=== PATIENT | female | born 1995 | race Caucasian/White ===

== ENCOUNTER 2016-09-11 22:33 | Emergency (ER) | payer OTHER ==
[~2016-09-11] VITALS: Ht 162.6 cm; Wt 53.2 kg
[~2016-09-11 22:33] MED LIST: MEDR150I INJ
[2016-09-11 22:34] VITALS: TEMP 36.5; O2SAT 97; Ht 162.6 cm; Wt 53.2 kg
[2016-09-11] MEDS ORDERED: KETOROLAC TROMETHAMINE 30 MG/ML VIAL IM STA (23:03)
[2016-09-11] MEDS ORDERED: MEDR150I INJ (23:10)
--- NOTE | 2016-09-11 23:46 | DIAGNOSTIC IMAGING REPORT ---
ULTRASOUND OF THE THYROID GLAND CLINICAL HISTORY: Right-sided neck mass. COMPARISON STUDY: No priors. TECHNIQUE: Real-time, grayscale, and color flow sonography of the thyroid gland is performed utilizing a high-frequency linear transducer. Images are reviewed in the transverse and longitudinal planes. FINDINGS: Right lobe: The right lobe of the thyroid gland is normal in size and homogeneous in echotexture, measuring 5.4 x 2.4 x 2.9 cm. There is a hypoechoic solid mass in the right mid to lower pole measuring 3.7 x 1.9 x 2.5 cm. This demonstrates internal flow on color imaging. A 3 mm colloid cyst is noted in the upper pole. Left lobe: The left lobe of the thyroid gland is normal in size and homogeneous in echotexture, measuring 4.1 x 0.9 x 1.5 cm. A 3 mm colloid cyst is noted in the left upper pole. Isthmus: The thyroid isthmus is normal in appearance and measures 0.1 cm in AP diameter. IMPRESSION: 1. There is a 3.7 cm dominant solid nodule in the right lobe of the thyroid gland. This corresponds to the lesion of palpable concern, and follow-up as an outpatient with fine-needle aspiration is recommended based on size criteria. 2. The thyroid gland is otherwise normal in appearance. Electronically signed by: Atif Borges M.D. 09/11/2016 11:44 PM Dictated Date/Time: 09/11/2016 11:42 PM
[2016-09-12 00:29] VITALS: BP 112/74; PULSE 94
--- NOTE | 2016-09-12 05:11 | EMERGENCY ROOM VISIT NOTE ---
History First contact with patient: 22:54 Chief Complaint: NECK PAIN Stated Complaint: PAIN IN BACK OF NECK,LUMP IN FRONT OF NECK History of Present Illness The patient is a 21 year old female who presents to the Emergency Room with complaints of pain in the right posterior aspect of her neck. The patient does not have a history of injury or trauma. 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 She does have pain with touching in the area of the neck as well as with certain motion of the head or shoulder. Additionally the patient has noticed a lump along the right side anterior neck. This is minimally tender when she swallows. She has not had fever or chills. No sore throat/ pharyngitis symptoms. The patient considers herself usually healthy and rates her overall discomfort a 7/10. She has not taken anything [id number] for her discomfort. Review of Systems More than 10 systems were reviewed and otherwise negative with the exception of history of present illness. Past Medical/Surgical History Medical Problems: (1) Headache (2) SYNCOPE AND COLLAPSE Family History Cancer Diabetes mellitus Gallbladder disease Heart disease Hypertension Seizures Social History Smoking Status: Never Smoker Alcohol Use: none Drug Use: none Marital Status: single Occupation Status: student Current/Historical Medications Scheduled Medroxyprogesterone Acetate (C (Depo-Provera Contraceptiv), 1 DOSE INJ every 3 months Allergies Coded Allergies: No Known Allergies (Unverified , 09/11/16) Physical Exam Vital Signs Date Time Temp Pulse Resp B/P Pulse Ox O2 Delivery O2 Flow Rate FiO2 09/12/16 00:29 94 18 112/74 Room Air 09/11/16 22:34 36.5 93 16 135/84 97 Room Air Pain Rating (0-10): 0 Physical Exam VITALS: Vitals are noted on the nurse's note and reviewed by myself. Vital signs stable. GENERAL: Well-developed, well-nourished, white female, who is in no acute distress and resting comfortably. Patient is cooperative with the examination. HEAD: Normocephalic atraumatic. EARS: External ear normal. External auditory canals clear, tympanic membranes pearly khoury without erythema or effusion bilaterally. EYES: Pupils equal round and reactive to light and accommodation. Conjunctivae without injection, sclerae without icterus. Extraocular movements intact. NOSE: Patent, turbinates without inflammation or discharge. MOUTH: Mucous membranes moist. Tonsils are not enlarged. Pharynx without erythema, blood, or exudate. Uvula midline. Airway patent. NECK: Supple without nuchal rigidity. There is a right anterior and inferior palpable mass that appears to be in the area of the thyroid. This is unilateral and measures approximately 4 cm in diameter HEART: Regular rate and rhythm without murmurs gallops or rubs. LUNGS: Clear to auscultation bilaterally without wheezes, rales or rhonchi. No retractions or accessory muscle use. MUSCULOSKELETAL: No muscle atrophy, erythema, or edema noted . Tenderness is appreciated over the right side neck into the superior aspect of the right shoulder. The patient does have worsening tenderness with certain range of motion of the shoulder. Positive empty can. NEURO: Patient was alert and oriented to person place and time. CN II through XII grossly intact. Medical Decision & Procedures ER Provider Diagnostic Interpretation: ULTRASOUND OF THE THYROID GLAND CLINICAL HISTORY: Right-sided neck mass. COMPARISON STUDY: No priors. TECHNIQUE: Real-time, grayscale, and color flow sonography of the thyroid gland is performed utilizing a high-frequency linear transducer. Images are reviewed in the transverse and longitudinal planes. FINDINGS: Right lobe: The right lobe of the thyroid gland is normal in size and homogeneous in echotexture, measuring 5.4 x 2.4 x 2.9 cm. There is a hypoechoic solid mass in the right mid to lower pole measuring 3.7 x 1.9 x 2.5 cm. This demonstrates internal flow on color imaging. A 3 mm colloid cyst is noted in the upper pole. Left lobe: The left lobe of the thyroid gland is normal in size and homogeneous in echotexture, measuring 4.1 x 0.9 x 1.5 cm. A 3 mm colloid cyst is noted in the left upper pole. Isthmus: The thyroid isthmus is normal in appearance and measures 0.1 cm in AP diameter. IMPRESSION: 1. There is a 3.7 cm dominant solid nodule in the right lobe of the thyroid gland. This corresponds to the lesion of palpable concern, and follow-up as an outpatient with fine-needle aspiration is recommended based on size criteria. 2. The thyroid gland is otherwise normal in appearance. Medications Administered Medications (Trade) Dose Ordered Sig/Kaye Route Start Time Stop Time Status Last Admin Dose Admin Ketorolac Tromethamine (Toradol Inj) 30 mg NOW STAT IM 09/11/16 23:03 09/11/16 23:07 DC 09/11/16 23:11 30 MG ED Course Physical exam and history were performed. Nursing notes and EMR were reviewed. Patient appears to have right-sided neck and shoulder pain as well as a right- sided neck mass. The patient was offered pain medication, but she has significant difficulty swallowing pills. Because of this she was given 30 mg IM Toradol. X-ray was obtained and does not appear to acute bony abnormality per my interpretation. Official radiology read is pending. Ultrasound was performed and was read by Alex as above. She appears to have a 3.7 cm thyroid nodule. Clinically this does correlate with the patient's area of concern. Overall the patient appears stable for discharge home. I suspect that her neck and shoulder pain is muscle skeletal in nature, possibly from working, and should improve with conservative measures. Her thyroid nodule will need a fine- needle aspiration, and I did discuss this at length with both her and her parents. I did engage the ER housing case manager to help arrange a patient appointment next week. It is currently Wednesday night, and we will call Wednesday morning to help facilitate ENT care. The family was pleased with this and voiced understanding. The patient was otherwise invited back to the ER with any new, worsening, or concerning symptoms. The chart was completed utilizing [employer] Speech Voice Recognition Software. Grammatical errors, random word insertions, pronoun errors, and incomplete sentences are an occasional consequence of this system due to software limitations, ambient noise, and hardware issues. Any formal questions or concerns about the content, text, or information contained within the body of this dictation should be directly addressed to the provider for clarification. . Medical Decision Differential diagnosis includes, but is not limited to: Sprain, strain, fracture , dislocation, subluxation, contusion, nodule, thyroid disease, thyroiditis, and others Impression Primary Impression: Thyroid nodule Additional Impression: Neck pain on right side Departure Information Dispostion Home / Self-Care Condition GOOD Referrals Forrest Weiner D.O. Forms HOME CARE DOCUMENTATION FORM, IMPORTANT VISIT INFORMATION Patient Instructions My [facility] Additional Instructions You were seen and evaluated today on an emergency basis only. This is not a substitute for, or an effort to provide, complete comprehensive medical care. It is not possible to recognize and treat all injuries or illnesses in a single emergency department visit. For this reason it is recommended that you followup with ENT next week for ongoing care and evaluation. We have provided the information for Dr. Weiner's office, [facility]. You may contact the office on Wednesday to help make an appointment. Additionally our rn field case manager from the ER will be contacting them to help facilitate you being seen in a timely manner. For baseline pain relief you may alternate ibuprofen and acetaminophen every 4 hours for pain control. Take 600 mg ibuprofen (Advil) and then 4 hours later take 1000 mg acetaminophen (Tylenol). Do not take more than 3000 mg acetaminophen in a single day. Drink plenty of fluids and remain well hydrated. You are welcome to return to the emergency department anytime with new, worsening, or concerning symptoms. Problem Qualifiers
--- NOTE | 2016-09-12 07:48 | DIAGNOSTIC IMAGING REPORT ---
CERVICAL SPINE 5 VIEWS CLINICAL HISTORY: Right neck pain. FINDINGS: AP, lateral, bilateral oblique, and odontoid views of the cervical spine are obtained. No prior studies are available for comparison at the time of dictation. The skeletal structures are well mineralized. There is no radiographic evidence of fracture or subluxation. The odontoid process and lateral masses appear intact on the open mouth view. The spinolaminar line is preserved. Vertebral body height and alignment are maintained. The spinous processes appear intact. The intervertebral disc spaces are normal. There is no evidence of neuroforaminal stenosis on the oblique views. The prevertebral soft tissues are within normal limits. Visualized apical lung parenchyma appears clear. IMPRESSION: Unremarkable radiographic assessment of the cervical spine. Electronically signed by: Atif Borges M.D. 09/12/2016 7:47 AM Dictated Date/Time: 09/12/2016 7:46 AM
[2016-11-09] MEDS ORDERED: OXYC-57 PO (07:21)
[2016-11-10] MEDS ORDERED: TUMS PO (06:37)
[2016-12-14] MEDS ORDERED: OXYC-57 PO (09:43)
[2016-12-14] MEDS ORDERED: CEPH500C2 PO ×2 (09:43→09:48)
[2016-12-14] MEDS ORDERED: TUMS PO (09:48)
[2016-12-14] MEDS ORDERED: LEVO100T PO (16:30)
== END 2016-09-12 00:47 | disposition home or self-care (01) ==
LOC: C.EDB 22:34
DX: E04.1 Nontoxic single thyroid nodule (principal); M54.2 Cervicalgia; Z80.9 Family history of malignant neoplasm, unspecified; Z83.3 Family history of diabetes mellitus; Z83.79 Family history of other diseases of the digestive system; Z82.49 Family history of ischemic heart disease and other diseases of the circulatory system; Z82.0 Family history of epilepsy and other diseases of the nervous system

== ENCOUNTER 2016-11-09 05:31 | Observation (INO) | payer OTHER ==
[~2016-11-09] VITALS: Ht 162.6 cm; Wt 53.6 kg
[2016-11-09] VITALS (9 sets, daily range): BP systolic 91–129; BP diastolic 53–82; PULSE 81–98; TEMP 36.4–36.9; O2SAT 92–100; Ht 162.6 cm; Wt 53.6 kg
[2016-11-09] MEDS ORDERED: LACTATED RINGER'S 1000ML 500 ML IV ONE (06:00)
[2016-11-09] MEDS ORDERED: LACTATED RINGER'S 1000ML 1,000 ML IV SCH (06:00)
[2016-11-09] MEDS ORDERED: PROPOFOL IV EMULSION 10 MG/ML 20 ML VIAL IV ONE ×2 (06:20→08:02)
[2016-11-09] MEDS ORDERED: ONDANSETRON INJ 2 MG/ML 2 ML VIAL ONE (06:20)
[2016-11-09] MEDS ORDERED: DEXAMETHASONE SOD INJ 4 MG/ML VIAL ONE (06:20)
[2016-11-09] MEDS ORDERED: LIDOCAINE HCL 2% 2 ML VIAL (20MG/ML) ONE (06:20)
[2016-11-09] MEDS ORDERED: SUCCINYLCHOLINE CHLORIDE 20 MG/ML 10 ML VIAL IV ONE (06:20)
[2016-11-09] MEDS ORDERED: MIDAZOLAM HCL 1 MG/ML 2ML VIAL ONE (06:21)
[2016-11-09] MEDS ORDERED: FENTANYL CITRATE INJ 50 MCG/1 ML 2 ML VIAL ONE (06:21)
[2016-11-09 06:22] LABS: HEMATOCRIT 37.8 % (37-47); MEAN CELL VOLUME 87.3 fL (80-100); MEAN PLATELET VOLUME 8.8 fL (7.4-10.4); PLATELET COUNT 275 K/uL (130-400); RED BLOOD COUNT 4.33 M/uL (4.2-5.4); WHITE BLOOD COUNT 5.63 K/uL (4.8-10.8)
[2016-11-09 06:24] LABS: MEAN CORPUSCULAR HGB CONC 34.4 g/dl (32-36)
--- NOTE | 2016-11-09 07:08 | History and Physical ---
History & Physical Date November 09, 2016. History of Present Illness The patient is a 21 year old female with complaints of right thyroid nodule. 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 Afirma testing suspicious. Patient and mother desire right hemithyroidectomy Past Medical/Surgical History Medical Problems: (1) Headache (2) SYNCOPE AND COLLAPSE Additional History Hepatic Disease: No Endocrine Disorder: No Kidney Disease: No Hypertension: No Heart Disease: No Bleeding Tendencies: No Infectious Diseases: No Allergies Coded Allergies: No Known Allergies (Verified , 11/09/16) Home Medications Scheduled Medroxyprogesterone Acetate (C (Depo-Provera Contraceptiv), 1 DOSE INJ every 3 months Physical Examination Skin: warm/dry, no rash Eyes: normal inspection, EOMI, sclerae normal ENT: normal ENT inspection, pharynx normal Head: normocephalic, atraumatic Neck: supple, no adenopathy, trachea midline, + pertinent finding (palpable right thyroid nodule) Respiratory/Chest: lungs clear, normal breath sounds, no respiratory distress Cardiovascular: regular rate, rhythm, no edema, no murmur Abdomen / GI: normal bowel sounds, non tender Back: normal inspection Extremities: normal inspection, normal range of motion Neurologic/Psych: no motor/sensory deficits, alert, normal reflexes, oriented x 3 Diagnosis right thyroid nodule Plan of Treatment proceed with right hemithyroidectomy scds
[2016-11-09] MEDS ORDERED: SODIUM CHLORIDE 0.9% 1000ML 1,000 ML IV SCH (07:16)
[2016-11-09] MEDS ORDERED: LIDOCAINE/EPINEPHRINE 1% 20 ML VIAL ONE (07:20)
[2016-11-09] MEDS ORDERED: OXYC-57 PO (07:21)
[2016-11-09] MEDS ORDERED: EpINEphrine INJ 1MG/ML AMP 1 MG/ML AMP ONE (07:21)
--- NOTE | 2016-11-09 07:24 | Discharge Instructions ---
Discharge Instructions Date of Service November 09, 2016. Admission Reason for Admission: Thyroid Nodule Discharge Discharge Diagnosis / Problem: thyroid nodule Discharge Goals Goal(s): Diagnostic testing Activity Recommendations Activity Limitations: as noted below Lifting Limitations: no more than 5 pounds Exercise/Sports Limitations: until after follow-up appointment May Resume Sexual Activity: after follow-up appointment Shower/Bathe: keep incision dry Driving or Machine Use: 1 week No strenuous activity for 2 weeks Keep incision dry . Instructions / Follow-Up Instructions / Follow-Up Keep incision dry (if you want to shower, place a washcloth over the incision and wrap the neck in saran wrap) No strenuous activity for 2 weeks Call for any numbness or tingling around the lips or fingertips unrelieved by 10 minutes of rest as this may be a sign of low calcium Call for any spreading swelling or redness around the incision Current Hospital Diet Patient's current hospital diet: Discharge Diet Recommended Diet: Regular Diet Fluid Restriction: None Pending Studies Studies pending at discharge: no Medical Emergencies . Who to Call and When: Medical Emergencies: If at any time you feel your situation is an emergency, please call 911 immediately. . Non-Emergent Contact Non-Emergency issues call your: Specialist Contact Number: [phone] . . "Provider Documentation" section prepared by Forrest Weiner. . VTE Core Measure Inpt VTE Proph given/why not?: Treatment not indicated [place] Drug Monitoring Program Search Results: patient reviewed within database, no issues identified
[2016-11-09] MEDS ORDERED: PROMETHAZINE HCL INJ 6.25 MG in SODIUM CHLORIDE 0.9% 50ML 50 ML IV PRN (07:30)
[2016-11-09] MEDS ORDERED: ATROPINE SULFATE 0.1 MG/ML 5ML SYR IV PRN (07:30)
[2016-11-09] MEDS ORDERED: EpHEDrine SULFATE INJ 50 MG/ML AMP IV PRN (07:30)
[2016-11-09] MEDS ORDERED: ONDANSETRON INJ 2 MG/ML 2 ML VIAL IV PRN (07:30)
[2016-11-09] MEDS ORDERED: OXYCODONE/ACETAMINOPHEN 5-325 TAB PO PRN (07:30)
[2016-11-09] MEDS ORDERED: ARISTA ABSORBABLE HEMOSTAT 3GM TOP ONE (09:16)
--- NOTE | 2016-11-09 09:32 | [facility] Post Operative Brief Note ---
Immediate Operative Summary Operative Date November 09, 2016. Pre-Operative Diagnosis Thyroid Nodule. FNA consistent with FLUS. Afirma testing suspicious Post-Operative Diagnosis Right Thyroid Nodule Procedure(s) Performed Right Hemithyroidectomy Surgeon Dr. Forrest Weiner [employer] Install[employer] Surgeon(s) Judi Cooney PA-C Estimated Blood Loss 10ml Findings large right thyroid nodule Fluids (cc crystalloids) 1100mL Specimens A. Right Thyroid Lobe and Isthmus-Stitch in Superior Pole Drains none Anesthesia GETA Complication(s) None Disposition Recovery Room / PACU
[2016-11-09] MEDS: FENTANYL CITRATE INJ 50 MCG/1 ML 2 ML VIAL IV PRN ×2 (09:57→10:02)
--- NOTE | 2016-11-09 10:55 | Anesthesiology Progress Note ---
Anesthesia Post Op Note Date & Time November 09, 2016 at 10:55 Vital Signs Pain Intensity: 2 Vital Signs Past 12 Hours Date Time Temp Pulse Resp B/P Pulse Ox O2 Delivery O2 Flow Rate FiO2 11/09/16 10:35 36.8 92 16 105/77 98 Room Air 11/09/16 10:25 36.8 89 16 100/67 98 Room Air 11/09/16 10:15 86 16 114/71 98 Room Air 11/09/16 10:05 104 16 114/71 94 Room Air 11/09/16 09:55 97 16 114/73 100 Mask 10 11/09/16 09:45 99 16 115/72 100 Mask 10 11/09/16 09:36 36.6 114 16 109/72 100 Mask 10 11/09/16 05:55 36.9 96 18 129/82 99 Room Air Notes Mental Status: alert / awake / arousable, participated in evaluation Pt Amnestic to Procedure: Yes Nausea / Vomiting: adequately controlled Pain: adequately controlled Airway Patency, RR, SpO2: stable & adequate BP & HR: stable & adequate Hydration State: stable & adequate Anesthetic Complications: no major complications apparent
[2016-11-09] MEDS: MoRPHine SULFATE 2 MG/ML CARP IV PRN ×2 (11:40→16:56)
--- NOTE | 2016-11-09 12:09 | OPERATIVE REPORT ---
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 PROCEDURE: Right hemithyroidectomy. COMPLICATIONS: None. DRAINS: None. ESTIMATED BLOOD LOSS: 10 mL. INTRAVENOUS FLUIDS: 1100 mL. URINE OUTPUT: 0 mL. SURGEON: Forrest Weiner DO ASSISTANTS: Lilian Cooney PA-C FINDINGS: See body of operative report. INDICATIONS FOR PROCEDURE: I discussed the options with her and her mother including observation versus repeat ultrasound versus consideration of a surgical biopsy with the right hemithyroidectomy. She and her mother expressed interest in pursuing right hemithyroidectomy. I discussed the risks including bleeding, infection, recurrent laryngeal nerve injury, hypoparathyroidism, and excessive scarring. She expressed understanding and signed informed consent. DESCRIPTION OF OPERATION: The patient was brought to the operating room, identified, procedure verified. She underwent general endotracheal anesthesia using nerve integrity monitoring tube. Using the GlideScope, the proper position of the tube was confirmed after a shoulder roll was placed. Once this was done, low Halima incision was delineated on the neck with a marking pen and injected with 1% lidocaine 1:100,000 of epinephrine. After allowing time for local to take effect, an incision was carried down with the 15 blade through skin and subcutaneous tissue down to the level of platysma. Superior and inferior subplatysmal flaps were then raised. Attention was directed to the midline raphae, which was identified and divided with the Bovie and attention was directed to the right side of the neck. The strap muscles were skeletonized and retracted laterally. They were not divided. Once this was done, the right thyroid lobe came into plain view. The large right-sided nodule of concern was easily visualized and palpable. Attention was directed to the superior pole, which was taken down in the usual fashion with blunt dissection with hemostats and right angle clamp as well as a harmonic ewelina. Once the superior pole was taken down, attention was directed to the visceral vertebral angle when the gland was rotated medially. Dissection proceeded from an inferior to superior direction along the visceral vertebral angle and the recurrent laryngeal nerve was identified. It was stimulated with the prass probe and a brisk response was obtained. The nerve was dissected out with a hemostat. During this portion of the case, the right superior parathyroid was identified and preserved. The right inferior parathyroid was not visualized, but felt to be preserved due to a capsular dissection. The nerve was dissected free from its surrounding fascial attachments superiorly into the cricothyroid joint. Once this was done, any remaining fascial attachments along the Woodruff's ligament were taken down with the harmonic ewelina as well as blunt dissection. Once this was completed, the remaining portion of the gland was removed with the harmonic ewelina as well as bipolar cautery. The gland was removed and a stitch was placed at the superior pole. At this point, attention was directed to the neck, where the Prass probe was used to confirm the integrity of the recurrent laryngeal nerve on the right hand side. A brisk response was obtained. Irrigation was performed, Valsalva during irrigation was performed as well and no air bubbles were identified during the leak test. Hemostasis was assured and several Valsalvas again were performed, but no bleeding was identified. Baljinder hemostatic powder was placed into the visceral vertebral angle and the wound was closed in the usual fashion with 3-0 Vicryl for the deep layer, 3-0 Vicryl for the platysmal layer, and 4-0 Vicryl for the subdermal layer. A running barbed suture was placed. It was a 4-0 to close the subcuticular layers, skin was closed with skin glue, and a Steri-Strip was applied. The patient was returned to anesthesia. She was awakened, extubated and taken to PACU in stable condition. I attest to the content of the Intraoperative Record and any orders documented therein. Any exceptions are noted below. NASRA
--- NOTE | 2016-11-09 12:26 | Ears,Nose,Throat Progress Note ---
Progress Note Date of Service November 09, 2016. Subjective Pt evaluation today including: conversation w/ patient, conversation w/ family , physical exam Patient is s/p right hemithyroidectomy, POD 0. Doing well. Pain controlled. Tolerating PO. No paraesthesias. Objective Vital Signs Date Time Temp Pulse Resp B/P Pulse Ox O2 Delivery O2 Flow Rate FiO2 11/09/16 12:02 91 17 108/69 92 Room Air 11/09/16 11:27 36.4 95 17 113/74 98 Room Air 11/09/16 10:55 Room Air 11/09/16 10:55 100 Room Air 11/09/16 10:35 36.8 92 16 105/77 98 Room Air 11/09/16 10:25 36.8 89 16 100/67 98 Room Air 11/09/16 10:15 86 16 114/71 98 Room Air 11/09/16 10:05 104 16 114/71 94 Room Air 11/09/16 09:55 97 16 114/73 100 Mask 10 11/09/16 09:45 99 16 115/72 100 Mask 10 11/09/16 09:36 36.6 114 16 109/72 100 Mask 10 11/09/16 05:55 36.9 96 18 129/82 99 Room Air Physical Exam General Appearance: WD/WN, no apparent distress ENT: normal ENT inspection Neck: + pertinent finding (steri strip in place, flaps are flat. No collections) Respiratory/Chest: no respiratory distress, no accessory muscle use Laboratory Results Last 24 Hours Test 11/09/16 05:50 11/09/16 06:11 Bedside Urine Test NEG White Blood Count 5.63 K/uL Red Blood Count 4.33 M/uL Hemoglobin 13.0 g/dL Hematocrit 37.8 % Mean Corpuscular Volume 87.3 fL Mean Corpuscular Hemoglobin 30.0 pg Mean Corpuscular Hemoglobin Concent 34.4 g/dl RDW Standard Deviation 39.8 fL RDW Coefficient of Variation 12.3 % Platelet Count 275 K/uL Mean Platelet Volume 8.8 fL Assessment and Plan 21 yo female s/p right hemithyroidectomy, POD 0 for large right sided nodule, FLUS on cytology and suspicious on Afirma testing. - doing well - advance diet as tolerated - ambulate q shift - discharge planning for tomorrow am
[2016-11-09] MEDS ORDERED: IV FLUIDS COMPLETED PRN (12:45)
[2016-11-09] MEDS: CALCIUM CARBONATE 500 MG CHEWABLE PO SCH ×2 (13:50→20:57)
[2016-11-09] MEDS: ONDANSETRON INJ 2 MG/ML 2 ML VIAL IV PRN (17:50)
[2016-11-09] MEDS: OXYCODONE/ACETAMINOPHEN 5-325 TAB PO PRN (20:58)
[2016-11-09] MEDS ORDERED: NURSING VERBAL MED ORDER ONE (23:30)
[2016-11-10] MEDS: MoRPHine SULFATE 2 MG/ML CARP IV PRN (02:25)
[2016-11-10 03:26] VITALS: BP 104/66; PULSE 90; TEMP 36.8; O2SAT 100
[2016-11-10] MEDS: ONDANSETRON INJ 2 MG/ML 2 ML VIAL IV PRN (06:13)
[2016-11-10] MEDS: OXYCODONE/ACETAMINOPHEN 5-325 TAB PO PRN ×2 (06:22→11:26)
[2016-11-10] MEDS ORDERED: TUMS PO (06:37)
[2016-11-10 07:10] VITALS: BP 101/63; PULSE 87; TEMP 36.3; O2SAT 97
--- NOTE | 2016-11-10 07:12 | Ears,Nose,Throat Progress Note ---
Progress Note Date of Service November 10, 2016. Subjective Pt evaluation today including: conversation w/ patient, physical exam Did well overnight. Is POD 1 s/p right hemithyroidectomy. No paraesthesias. Objective Vital Signs Date Time Temp Pulse Resp B/P Pulse Ox O2 Delivery O2 Flow Rate FiO2 11/10/16 03:26 36.8 90 16 104/66 100 Room Air 11/10/16 01:50 Room Air 11/09/16 23:40 36.8 81 16 91/53 99 Room Air 11/09/16 18:58 36.7 89 18 107/72 100 Room Air 11/09/16 15:30 36.6 98 18 114/75 97 Room Air 11/09/16 15:20 Room Air 11/09/16 13:56 36.8 98 16 103/70 97 Room Air 11/09/16 12:54 36.6 95 17 104/69 98 Room Air 11/09/16 12:02 91 17 108/69 92 Room Air 11/09/16 11:27 36.4 95 17 113/74 98 Room Air 11/09/16 10:55 Room Air 11/09/16 10:55 100 Room Air 11/09/16 10:55 36.4 94 16 103/67 100 Room Air 11/09/16 10:35 36.8 92 16 105/77 98 Room Air 11/09/16 10:25 36.8 89 16 100/67 98 Room Air 11/09/16 10:15 86 16 114/71 98 Room Air 11/09/16 10:05 104 16 114/71 94 Room Air 11/09/16 09:55 97 16 114/73 100 Mask 10 11/09/16 09:45 99 16 115/72 100 Mask 10 11/09/16 09:36 36.6 114 16 109/72 100 Mask 10 Physical Exam General Appearance: WD/WN, no apparent distress Eyes: EOMI ENT: normal ENT inspection Neck: + pertinent finding (flaps are flat, no collections. steri strip in place) Respiratory/Chest: no respiratory distress, no accessory muscle use Assessment and Plan 21 yo female s/p right hemithyroidectomy, POD 1 for large right sided nodule, FLUS on cytology and suspicious on Afirma testing. - did well overnight - discharge home this am
--- NOTE | 2016-11-10 07:15 | Discharge Summary ---
Discharge Summary Date of Service November 10, 2016. Discharge Summary Admission Date: November 09, 2016 at 05:50 Discharge Date: November 10, 2016 Discharge Disposition: Home Secondary Diagnoses/Problems: Medical Problems: (1) Bartholin cyst Status: Acute (2) Neck pain on right side Status: Acute (3) Thyroid nodule Status: Acute Procedures: right hemithyroidectomy Discharge Instructions Last Recorded Wt (Kilograms): 53.640 Activity Recommendations: limitations as noted below (no strenuous activity for 2 weeks) Diet At Discharge: Regular Allergies: Coded Allergies: No Known Allergies (Verified , 11/09/16) Home Health Services: none Special Care: Call your doctor if: * Temperature above 101 degrees * Pain not relieved by pain medicine ordered * There is increased drainage or redness from any incision * You have any unanswered questions or concerns. Avoid all tobacco products. If you need help to stop smoking, call [facility] FREE QUITLINE at . This is a free call. Admission Information Admission HPI: Patient with right thyroid nodule, FNA consistent with FLUS, suspicious on Afirma testing. Admission Physical Exam: Gen: AAOx3. Neck: Palpable right thyroid nodule Lungs: CTAB Heart: RRR Hospital Course Patient admitted for observation after undergoing right hemithyroidectomy. Patient did well with no issues. Tolerating diet. She was discharged on POD 1. Total time spent on discharge = This includes examination of the patient, discharge planning, medication reconciliation, and communication with other providers.
--- NOTE | 2016-11-10 08:11 | Anesthesiology Progress Note ---
Anesthesia Post Op Note Date & Time November 10, 2016 at 08:11 Vital Signs Vital Signs Past 12 Hours Date Time Temp Pulse Resp B/P Pulse Ox O2 Delivery O2 Flow Rate FiO2 11/10/16 07:10 36.3 87 17 101/63 97 Room Air 11/10/16 03:26 36.8 90 16 104/66 100 Room Air 11/10/16 01:50 Room Air 11/09/16 23:40 36.8 81 16 91/53 99 Room Air Notes Mental Status: alert / awake / arousable, participated in evaluation Pt Amnestic to Procedure: Yes Nausea / Vomiting: adequately controlled Pain: adequately controlled Airway Patency, RR, SpO2: stable & adequate BP & HR: stable & adequate Hydration State: stable & adequate Anesthetic Complications: no major complications apparent
[2016-11-10] MEDS: CALCIUM CARBONATE 500 MG CHEWABLE PO SCH (09:03)
[2016-11-10 09:21] VITALS: BP 101/63; PULSE 87; TEMP 36.3; O2SAT 97
== END 2016-11-10 12:45 | disposition home or self-care (01) ==
LOC: ENRESERVTM → ENRESERVDT → C.ACU 05:31 → C.MSN 05:50
PROVIDERS: ADMIT Otolaryngology; ATTEND Otolaryngology
DX: C73 Malignant neoplasm of thyroid gland (principal)

== ENCOUNTER 2016-12-14 05:02 | Inpatient (IN) | payer OTHER ==
[2016-12-10 08:53] VITALS: Ht 162.6 cm; Wt 50.9 kg
[2016-12-14] VITALS (9 sets, daily range): BP systolic 101–111; BP diastolic 65–74; PULSE 77–107; TEMP 36.6–37; O2SAT 97–100
[~2016-12-14] VITALS: Ht 162.6 cm; Wt 50.9 kg
[2016-12-14] MEDS ORDERED: LACTATED RINGER'S 1000ML 1,000 ML IV SCH (06:00)
[2016-12-14] MEDS ORDERED: CEFAZOLIN 1000MG/55 ML D5W IV SCH (06:00)
[2016-12-14] MEDS ORDERED: EpHEDrine SULFATE INJ 50 MG/ML AMP ONE (06:45)
[2016-12-14] MEDS ORDERED: NEOSTIGMINE METHYLSULFATE 5 MG/5 ML SYR ONE (06:45)
[2016-12-14] MEDS ORDERED: SUCCINYLCHOLINE CHLORIDE 20 MG/ML 10 ML VIAL IV ONE (06:45)
[2016-12-14] MEDS ORDERED: GLYCOPYRROLATE INJ 0.2 MG/ML VIAL ONE (06:45)
[2016-12-14] MEDS ORDERED: ONDANSETRON INJ 2 MG/ML 2 ML VIAL ONE ×2 (06:45→08:37)
[2016-12-14] MEDS ORDERED: DEXAMETHASONE SOD INJ 4 MG/ML VIAL ONE (06:45)
[2016-12-14] MEDS ORDERED: LIDOCAINE HCL 2% 2 ML VIAL (20MG/ML) ONE (06:45)
[2016-12-14] MEDS ORDERED: MIDAZOLAM HCL 1 MG/ML 2ML VIAL ONE (06:45)
[2016-12-14] MEDS ORDERED: PROPOFOL IV EMULSION 10 MG/ML 20 ML VIAL IV ONE ×2 (06:45→08:44)
[2016-12-14] MEDS ORDERED: PHENYLEPHRINE HCL INJ 10 MG/ML VIAL ONE (06:45)
[2016-12-14] MEDS ORDERED: FENTANYL CITRATE INJ 50 MCG/1 ML 2 ML VIAL ONE ×3 (06:45→08:07)
[2016-12-14] MEDS ORDERED: LIDOCAINE/EPINEPHRINE 1% 20 ML VIAL ONE (06:55)
[2016-12-14] MEDS ORDERED: EpINEphrine INJ 1MG/ML AMP 1 MG/ML AMP ONE (06:56)
--- NOTE | 2016-12-14 07:10 | History and Physical ---
History & Physical Date Dec 14, 2016. Chief Complaint Follicular thyroid cancer History of Present Illness The patient is a 21 year old female who is s/p right hemithyroidectomy. Path consistent with follicular thyroid carcinoma. She presents today for completion thyroidectomy. Past Medical/Surgical History Medical Problems: (1) Headache (2) SYNCOPE AND COLLAPSE Additional History Hepatic Disease: No Endocrine Disorder: No Kidney Disease: No Hypertension: No Heart Disease: No Bleeding Tendencies: No Infectious Diseases: No Allergies Coded Allergies: No Known Allergies (Verified , 12/14/16) Home Medications Scheduled Medroxyprogesterone Acetate (C (Depo-Provera Contraceptiv), 1 DOSE INJ every 3 months Physical Examination Skin: warm/dry, no rash Eyes: normal inspection, EOMI, sclerae normal ENT: normal ENT inspection, pharynx normal Head: normocephalic, atraumatic Neck: supple, no adenopathy, trachea midline Respiratory/Chest: lungs clear, normal breath sounds, no respiratory distress Cardiovascular: regular rate, rhythm, no edema, no murmur Abdomen / GI: normal bowel sounds, non tender Back: normal inspection Extremities: normal inspection, normal range of motion Neurologic/Psych: no motor/sensory deficits, alert, normal reflexes, oriented x 3 Diagnosis Follicular thyroid carcinoma Plan of Treatment Proceed with completion thyroidectomy -scds -anc
[2016-12-14] MEDS ORDERED: ONDANSETRON INJ 2 MG/ML 2 ML VIAL IV PRN ×2 (07:15→07:30)
[2016-12-14] MEDS ORDERED: ATROPINE SULFATE 0.1 MG/ML 5ML SYR IV PRN (07:15)
[2016-12-14] MEDS ORDERED: EpHEDrine SULFATE INJ 50 MG/ML AMP IV PRN (07:15)
[2016-12-14] MEDS ORDERED: FENTANYL CITRATE INJ 50 MCG/1 ML 2 ML VIAL IV PRN (07:15)
[2016-12-14] MEDS ORDERED: CEFAZOLIN SOD 1000MG/55 ML D5W IV ONE (07:15)
[2016-12-14] MEDS ORDERED: OXYCODONE/ACETAMINOPHEN 5-325 TAB PO PRN (07:30)
[2016-12-14] MEDS ORDERED: MoRPHine SULFATE 2 MG/ML CARP IV PRN (07:30)
[2016-12-14] MEDS ORDERED: ROCURONIUM BROMIDE 10 MG/ML 5 ML VIAL ONE (08:04)
[2016-12-14] MEDS ORDERED: ARISTA ABSORBABLE HEMOSTAT 3GM TOP ONE (08:57)
--- NOTE | 2016-12-14 09:37 | [facility] Post Operative Brief Note ---
Immediate Operative Summary Operative Date Dec 14, 2016. Pre-Operative Diagnosis Follicular thyroid cancer Post-Operative Diagnosis Same as preop Procedure(s) Performed Completion Thyroidectomy with Recurrent Nerve Monitoring Surgeon Dr. Weiner Stretch Press Operator Surgeon(s) Lilian Cooney PA-C Estimated Blood Loss 10 cc Findings Normal appearing left thyroid lobe Specimens A: left thyroid lobe and isthmus, stitch at superior pole Drains none Anesthesia GETA Complication(s) None Disposition Recovery Room / PACU
[2016-12-14] MEDS ORDERED: OXYC-57 PO (09:43)
[2016-12-14] MEDS ORDERED: CEPH500C2 PO ×2 (09:43→09:48)
--- NOTE | 2016-12-14 09:46 | Discharge Instructions ---
Discharge Instructions Date of Service Dec 14, 2016. Admission Reason for Admission: Follicular Carcinoma Discharge Discharge Diagnosis / Problem: Follicular thyroid carcinoma Discharge Goals Goal(s): Improve function Activity Recommendations Activity Limitations: as noted below Lifting Limitations: until after follow-up appointment Exercise/Sports Limitations: until after follow-up appointment May Resume Sexual Activity: after follow-up appointment Shower/Bathe: keep incision dry Driving or Machine Use: until after first follow up No strenuous activity for 2 weeks No heavy lifting for 2 weeks Keep incision dry . Instructions / Follow-Up Instructions / Follow-Up No strenuous activity for 2 weeks Keep incision dry ( you can use wash cloth and saran wrap to shower as discussed previously) Call for any numbness or tingling around the lips or fingertips that does not resolve with 10-15 minutes of rest as this may be a sign of low calcium Call for any progressive swelling or redness of the incision Keep steri strip and neck dry. Current Hospital Diet Patient's current hospital diet: Regular Diet Discharge Diet Recommended Diet: Regular Diet Procedures Procedures Performed: Completion Thyroidectomy with Recurrent Nerve Monitoring Pending Studies Studies pending at discharge: no Medical Emergencies . Who to Call and When: Medical Emergencies: If at any time you feel your situation is an emergency, please call 911 immediately. . Non-Emergent Contact Non-Emergency issues call your: Specialist Contact Number: [phone] . . "Provider Documentation" section prepared by Forrest Weiner. . VTE Core Measure Inpt VTE Proph given/why not?: Treatment not indicated [place] Drug Monitoring Program Search Results: patient reviewed within database, no issues identified
[2016-12-14] MEDS ORDERED: TUMS PO (09:48)
--- NOTE | 2016-12-14 10:11 | Anesthesiology Progress Note ---
Anesthesia Post Op Note Date & Time Dec 14, 2016 at 10:11 Vital Signs Pain Intensity: 3 Vital Signs Past 12 Hours Date Time Temp Pulse Resp B/P (MAP) Pulse Ox O2 Delivery O2 Flow Rate FiO2 12/14/16 10:00 36.1 107 15 116/69 100 Nasal Cannula 2 12/14/16 09:50 105 17 120/73 100 Mask 10 12/14/16 09:40 102 15 111/66 100 Mask 10 12/14/16 09:30 36.3 132 13 111/69 100 Mask 10 12/14/16 05:51 36.8 89 16 110/73 (85) 99 Room Air Notes Mental Status: alert / awake / arousable, participated in evaluation Pt Amnestic to Procedure: Yes Nausea / Vomiting: adequately controlled Pain: adequately controlled Airway Patency, RR, SpO2: stable & adequate BP & HR: stable & adequate Hydration State: stable & adequate Anesthetic Complications: no major complications apparent
--- NOTE | 2016-12-14 10:34 | OPERATIVE REPORT ---
DATE OF OPERATION: 12/14/2016 PREOPERATIVE DIAGNOSIS: Follicular thyroid carcinoma, status post right hemithyroidectomy. POSTOPERATIVE DIAGNOSIS: Same. PROCEDURE: Completion thyroidectomy to include left thyroid lobe and remaining isthmus. SURGEON: Dr. Forrest Weiner. GERMAN PROFESSOR: Lilian Cooney PA-C. COMPLICATIONS: None. DRAINS: None. ESTIMATED BLOOD LOSS: 10 mL IV FLUIDS: 1200 mL URINE OUTPUT: 0 mL SPECIMEN: Left thyroid lobe and portion of isthmus, stitch in superior pole, sent to surgical pathology. INDICATIONS AND HISTORY: This is a 21-year-old female who presented to my office for a right thyroid nodule. Fine needle biopsy was consistent on genetic testing was suspicious. I recommended a surgical biopsy, that was performed previously. Final pathology revealed follicular thyroid carcinoma. I did recommend a completion thyroidectomy due to her young age, the size of the tumor. She expressed her understanding. I discussed the risks with her again including bleeding, infection, excessive scarring, recurrent laryngeal nerve injury, hypoparathyroidism. She expressed understanding and signed informed consent. DESCRIPTION OF PROCEDURE: The patient was brought to the operating room, identified, procedure verified. She underwent general endotracheal anesthesia and prepped and draped in the usual fashion for thyroidectomy. Using the GlideScope, placement of the nerve integrity monitoring tube was confirmed to be in proper position, it was secured. SCDs were in place prior to the start of the case. At this point, attention was directed to the previous low Halima incision which was used again. It was injected with 1% lidocaine 1:100,000 epinephrine. After allowing time for local to take effect, incision was carried down with a 15 blade through skin and subcutaneous tissue down to the level of the platysma. Once this was done, superior and inferior subplatysmal flaps were raised. There was scarring from previous surgery which was dissected bluntly. Once this was done, the midline raphe was identified bluntly with hemostats. Once the strap muscles on the left were identified, they were skeletonized and retracted laterally. Once this was done, the left thyroid lobe came into plane view. Of note, the left sternothyroid muscle was noted to be slightly adherent to the left thyroid lobe. This was felt to be due to previous surgical reaction, but because of the concern of possible involvement of the left lobe with a follicular cancer, portion of the left sternothyroid muscle was taken with the specimen. Once the left lobe was skeletonized laterally, attention was directed to the superior pole which was taken down in the usual fashion with blunt dissection and Harmonic ewelina. Hemostasis was assured with hemostatic clips. During this portion of the dissection, the left superior parathyroid was identified and it was preserved. At this point, once the superior pole was mobilized, attention was directed more inferiorly. The visceral vertebral angle was exposed and the dissection proceeded from inferior to superior. Recurrent laryngeal nerve was identified visually, it was dissected superiorly toward its entrance into the cricothyroid joint. Once it was laid out in plane site, it was confirmed with the Prass probe to be indeed the recurrent laryngeal nerve. It was dissected out again from inferior to superior into attention to the cricothyroid joint. During this portion of the dissection, the left inferior parathyroid was identified and it was also preserved. Once the remaining fascial attachments to the trachea were taken down with blunt dissection with hemostats as well as the Harmonic ewelina, the gland was mobilized away from the nerve. The remaining fascial attachments to the anterior tracheal wall were taken down with the Harmonic ewelina. The gland was removed, marked with a marking stitch at the superior pole and sent for permanent section. Irrigation was performed liberally. Hemostasis was assured. Once this was done, the Prass probe again was used to stimulate the nerve and a brisk response was obtained. Once this was done, the incision was closed in the usual fashion. Fibrillar was placed in the visceral vertebral angle as well as Baljinder hemostatic powder. At this point, the wound was closed in the usual fashion with 3-0 Vicryl for the deep layer, 3-0 Vicryl for the platysma layer, 4-0 Vicryl for the subdermal layer and a running efren suture for the subcuticular layer. Skin was closed with Dermabond and a single Steri-Strip was placed. At this point, the patient was turned anesthesia. She was awakened, extubated and taken to recovery unit in stable condition. I attest to the content of the Intraoperative Record and any orders documented therein. Any exceptions are noted below. NASRA
[2016-12-14] MEDS: SODIUM CHLORIDE 0.9% 1000ML 1,000 ML IV SCH (11:18)
[2016-12-14] MEDS: CALCIUM CARBONATE 500 MG CHEWABLE PO SCH ×2 (13:24→20:21)
--- NOTE | 2016-12-14 13:38 | Ears,Nose,Throat Progress Note ---
Progress Note Date of Service Dec 14, 2016. Subjective Pt evaluation today including: conversation w/ patient, conversation w/ family , physical exam, lab review 21 yo female s/p completion thyroidectomy for follicular thyroid carcinoma. No issues since surgery. Calcium 8.8. No paraesthesias. Objective Vital Signs Date Time Temp Pulse Resp B/P (MAP) Pulse Ox O2 Delivery O2 Flow Rate FiO2 12/14/16 12:20 102 16 107/72 (84) 100 Room Air 12/14/16 11:32 98 18 102/71 (81) 12/14/16 11:01 36.6 98 19 104/65 (78) 100 Nasal Cannula 3.0 12/14/16 10:30 37.0 107 14 111/74 (86) 100 Nasal Cannula 2.0 12/14/16 10:30 100 Nasal Cannula 2.0 12/14/16 10:30 Nasal Cannula 2.0 12/14/16 10:10 105 15 115/72 100 Nasal Cannula 2 12/14/16 10:00 36.1 107 15 116/69 100 Nasal Cannula 2 12/14/16 09:50 105 17 120/73 100 Mask 10 12/14/16 09:40 102 15 111/66 100 Mask 10 12/14/16 09:30 36.3 132 13 111/69 100 Mask 10 12/14/16 05:51 36.8 89 16 110/73 (85) 99 Room Air Physical Exam General Appearance: WD/WN, no apparent distress Eyes: normal inspection, EOMI ENT: normal ENT inspection Neck: + pertinent finding (flaps are flat, no seroma or hematoma) Respiratory/Chest: lungs clear, normal breath sounds Neurologic/Psychiatric: + pertinent finding (chvostek negative) Laboratory Results Last 24 Hours Test 12/14/16 05:44 12/14/16 09:50 Calcium Level 8.8 mg/dl
[2016-12-14] MEDS ORDERED: LEVO100T PO (16:30)
[2016-12-14] MEDS: OXYCODONE/ACETAMINOPHEN 5-325 TAB PO PRN (20:19)
--- NOTE | 2016-12-14 22:39 | DIAGNOSTIC IMAGING REPORT ---
CHEST ONE VIEW PORTABLE HISTORY: Atypical Chest pain COMPARISON: Chest 03/21/2013. FINDINGS: The lungs are clear. The heart is normal in size. No pleural effusions. No pneumothorax. No pneumomediastinum. Mild right deviation of the upper to mid trachea. IMPRESSION: Mild right deviation of the upper to mid trachea. This could be due to the recent postoperative change or positional. Otherwise, no acute process within the chest. Electronically signed by: Scooby Price M.D. 12/14/2016 10:38 PM Dictated Date/Time: 12/14/2016 10:35 PM
[2016-12-14] MEDS ORDERED: OPTIRAY 320 IV PRN (22:45)
--- NOTE | 2016-12-14 22:59 | DIAGNOSTIC IMAGING REPORT ---
CHEST CTA for PULMONARY ARTERIES CT DOSE: 176.15 mGy.cm HISTORY: Short of breath. Postop. TECHNIQUE: Multiaxial CT images of the chest were performed following the intravenous administration of contrast to evaluate the pulmonary arteries. Maximal intensity projection images were also obtained. COMPARISON STUDY: Chest 12/14/2016. FINDINGS: Heterogeneous fluid and gas collection within the left thyroid bed which measures approximately 2.8 x 2.6 cm. This favors a postoperative fluid collection/hematoma. This results in mild right deviation of the upper trachea. However, the trachea remains widely patent. Trace amount of gas within the base of the neck and prevertebral soft tissues is also likely due to the recent postoperative change. Normal caliber thoracic aorta with no evidence for dissection. No pleural or pericardial effusions. The heart is normal in size. No filling defects within the pulmonary arteries to suggest pulmonary embolus. Heterogeneous opacification of the spleen is likely due to the timing of contrast. Visualized liver is unremarkable. No mediastinal or hilar lymphadenopathy. No pneumothorax. The central airways are patent. Linear densities at the bases of the bilateral lower lobes likely represent subsegmental atelectasis. The lungs are otherwise clear. IMPRESSION: 1. No evidence for pulmonary embolus. 2. A 2.8 x 2.6 cm heterogeneous fluid and gas collection within the left neck base at the thyroid bed. This favors postoperative fluid/hematoma. This results in mild right deviation of the upper trachea. However, the trachea remains widely patent. Electronically signed by: Scooby Price M.D. 12/14/2016 10:58 PM Dictated Date/Time: 12/14/2016 10:48 PM
--- NOTE | 2016-12-14 23:04 | Ears,Nose,Throat Progress Note ---
Progress Note Date of Service Dec 14, 2016. Subjective Pt evaluation today including: conversation w/ patient, physical exam, chart review Was called by nursing for patient complaint of intermittent chest pain, shortness of breath. Patient has been saturating 97-100% on room air. Objective Vital Signs Date Time Temp Pulse Resp B/P (MAP) Pulse Ox O2 Delivery O2 Flow Rate FiO2 12/14/16 22:00 36.7 106 106/71 (83) 97 Room Air 12/14/16 19:20 37.0 98 16 108/69 (82) 99 Room Air 12/14/16 15:57 36.8 96 18 101/68 (79) 98 Room Air 12/14/16 15:50 Room Air 12/14/16 12:20 102 16 107/72 (84) 100 Room Air 12/14/16 11:32 98 18 102/71 (81) 12/14/16 11:01 36.6 98 19 104/65 (78) 100 Nasal Cannula 3.0 12/14/16 10:30 37.0 107 14 111/74 (86) 100 Nasal Cannula 2.0 12/14/16 10:30 100 Nasal Cannula 2.0 12/14/16 10:30 Nasal Cannula 2.0 12/14/16 10:10 105 15 115/72 100 Nasal Cannula 2 12/14/16 10:00 36.1 107 15 116/69 100 Nasal Cannula 2 12/14/16 09:50 105 17 120/73 100 Mask 10 12/14/16 09:40 102 15 111/66 100 Mask 10 12/14/16 09:30 36.3 132 13 111/69 100 Mask 10 12/14/16 05:51 36.8 89 16 110/73 (85) 99 Room Air Physical Exam General Appearance: WD/WN, no apparent distress ENT: + pertinent finding (Incision with flaps flat. Tenderness below the incision to palpation. No cervical crepitance. Skin without erythema or ecchymosis. ) Neck: + pertinent finding (Incision with flaps flat. Tenderness below the incision to palpation. No cervical crepitance. Skin without erythema or ecchymosis. ) Respiratory/Chest: no respiratory distress, no accessory muscle use Laboratory Results Last 24 Hours Test 12/14/16 05:44 12/14/16 09:50 12/14/16 15:15 Calcium Level 8.8 mg/dl 8.4 mg/dl Assessment and Plan 21 yo female s/p completion thyroidectomy for follicular thyroid carcinoma - EKG normal sinus rhythm - CXR without any pneumomediastinum, no cervical subQ air. - CT/PE obtained and reviewed with radiology. She has no obvious PE. She does have a small left sided post op hematoma but it does not extend into the mediastinum. - her neck exam has remained unchanged from around 2pm this afternoon. She has minimal if any cervical swelling. I do suspect her symptoms are related to some mild compressive symptoms but the area is not expanding as the neck exam has remained unchanged for the past 9 hrs - will recheck in the am - calcium in the am
[2016-12-15] MEDS: SODIUM CHLORIDE 0.9% 1000ML 1,000 ML IV SCH (03:09)
[2016-12-15 03:50] VITALS: BP 99/63; PULSE 97; TEMP 37; O2SAT 98
[2016-12-15] MEDS ORDERED: LEVOTHYROXINE 100 MCG TAB PO SCH (06:00)
[2016-12-15 07:18] VITALS: BP 100/68; PULSE 92; TEMP 36.5; O2SAT 98
--- NOTE | 2016-12-15 08:05 | Anesthesiology Progress Note ---
Anesthesia Post Op Note Date & Time Dec 15, 2016 at 08:01 Vital Signs Vital Signs Past 12 Hours Date Time Temp Pulse Resp B/P (MAP) Pulse Ox O2 Delivery O2 Flow Rate FiO2 12/15/16 07:18 36.5 92 15 100/68 (79) 98 Room Air 12/15/16 03:50 37.0 97 16 99/63 (75) 98 Nasal Cannula 2.0 12/14/16 23:25 Nasal Cannula 2.0 12/14/16 23:15 37.0 77 16 105/69 (81) 100 Nasal Cannula 2.0 12/14/16 22:00 36.7 106 106/71 (83) 97 Room Air Notes Mental Status: alert / awake / arousable, participated in evaluation Pt Amnestic to Procedure: Yes Nausea / Vomiting: adequately controlled Pain: adequately controlled Airway Patency, RR, SpO2: stable & adequate BP & HR: stable & adequate Hydration State: stable & adequate Anesthetic Complications: no major complications apparent
[2016-12-15] MEDS: CALCIUM CARBONATE 500 MG CHEWABLE PO SCH ×2 (08:52→14:45)
--- NOTE | 2016-12-15 10:27 | Medical Consult ---
Consultation Date of Consultation: Dec 15, 2016. Attending Physician: Forrest Weiner D.O. Reason for Consultation: chest pain . History of Present Illness 21-year-old female. Status post recent right hemithyroidectomy which revealed follicular thyroid carcinoma. Completion thyroidectomy performed yesterday. Developed chest pain last evening which has persisted. Chest pain described as left upper anterior chest pain that does not radiate. No associated hypoxia or dyspnea. No diaphoresis, nausea, vomiting. No lower extremity pain or swelling. Pain is aggravated by moving her left arm. Boyfriend visiting and present during interview and examination. . Past Medical/Surgical History Medical Problems: Bartholin cyst Follicular carcinoma of thyroid . Family History Cancer Diabetes mellitus Gallbladder disease Heart disease Hypertension Seizures Social History Smoking Status: Never Smoker Alcohol Use: none Drug Use: none Marital Status: single Occupation Status: student Allergies Coded Allergies: No Known Allergies (Verified , 12/14/16) Current Inpatient Medications Current Inpatient Medications Medications (Trade) Dose Ordered Sig/Kaye Route Start Time Stop Time Status Last Admin Dose Admin Morphine Sulfate (MoRPHine SULFATE INJ) 2 mg Q2H PRN IV 12/14/16 07:30 12/28/16 07:29 12/14/16 11:13 2 MG Oxycodone/ Acetaminophen (Percocet 5-325mg Tab) 1 tab Q4H PRN PO 12/14/16 07:30 12/28/16 07:29 12/14/16 20:19 1 TAB Oxycodone/ Acetaminophen (Percocet 5-325mg Tab) 2 tab Q4H PRN PO 12/14/16 07:30 12/28/16 07:29 Calcium Carbonate (Tums Chew Tab) 1,500 mg TID PO 12/14/16 14:00 01/13/17 13:59 12/15/16 08:52 1,500 MG Levothyroxine Sodium (Synthroid Tab) 100 mcg DAILYBB PO 12/15/16 06:00 01/14/17 05:59 12/15/16 05:55 100 MCG Ioversol (Optiray 320) 100 ml UD PRN IV 12/14/16 22:45 12/18/16 22:44 Review of Systems Constitutional: No fever Respiratory: No cough, No shortness of breath Cardiovascular: + chest pain, No edema Abdomen: No nausea, No vomiting Hematologic / Lymphatic: No abnormal bleeding/bruising Physical Exam Date Time Temp Pulse Resp B/P (MAP) Pulse Ox O2 Delivery O2 Flow Rate FiO2 12/15/16 08:21 Room Air 12/15/16 07:18 36.5 92 15 100/68 (79) 98 Room Air 12/15/16 03:50 37.0 97 16 99/63 (75) 98 Nasal Cannula 2.0 12/14/16 23:25 Nasal Cannula 2.0 12/14/16 23:15 37.0 77 16 105/69 (81) 100 Nasal Cannula 2.0 12/14/16 22:00 36.7 106 106/71 (83) 97 Room Air 12/14/16 19:20 37.0 98 16 108/69 (82) 99 Room Air 12/14/16 15:57 36.8 96 18 101/68 (79) 98 Room Air 12/14/16 15:50 Room Air 12/14/16 12:20 102 16 107/72 (84) 100 Room Air 12/14/16 11:32 98 18 102/71 (81) 12/14/16 11:01 36.6 98 19 104/65 (78) 100 Nasal Cannula 3.0 12/14/16 10:30 37.0 107 14 111/74 (86) 100 Nasal Cannula 2.0 12/14/16 10:30 100 Nasal Cannula 2.0 12/14/16 10:30 Nasal Cannula 2.0 General Appearance: WD/WN, no apparent distress Head: normocephalic, atraumatic Eyes: PERRL, EOMI, sclerae normal ENT: normal ENT inspection, hearing grossly normal Neck: + pertinent finding (thyroidectomy incision without drainage or surrounding erythema) Respiratory/Chest: lungs clear, no respiratory distress, no accessory muscle use Cardiovascular: regular rate, rhythm, no edema, no gallop, no JVD, + systolic murmur (soft flow murmur at base), + pertinent finding (left infra-clavicular chest wall tenderness to light palpation) Abdomen/GI: normal bowel sounds, non tender, soft, no organomegaly Extremities/Musculoskelatal: normal inspection, no calf tenderness Neurologic/Psych: alert, oriented x 3 Skin: warm/dry Laboratory Results EKG performed last evening at 21:59 reviewed and demonstrated normal sinus rhythm at 90/minute, no acute ST or T-wave abnormalities. CTA of chest performed last evening negative for pulmonary embolus or other intrathoracic process. Last 24 Hours Test 12/14/16 15:15 12/15/16 04:55 Calcium Level 8.4 mg/dl Assessment & Plan Postoperative chest pain. Chest pain appears to be muscloskeletal in nature. Pain atypical for acute coronary syndrome and EKG does not show any acute changes. Pulmonary embolism ruled out by CTA of chest. Recommend analgesics PRN. No further evaluation necessary at this time. Thank you for this consultation. We will follow the patient with you during their hospital stay. You can reach a member of the [facility] Hospitalist Team 11/01 via pager @ . You can reach me via cell @ [phone]. .
[2016-12-15] MEDS: OXYCODONE/ACETAMINOPHEN 5-325 TAB PO PRN (11:04)
--- NOTE | 2016-12-15 12:28 | Ears,Nose,Throat Progress Note ---
Progress Note Date of Service Dec 15, 2016. Subjective Pt evaluation today including: conversation w/ patient, conversation w/ family , physical exam, chart review, conversation w/ database reporting consultant Patient feeling better after she has started to belch. She states the chest discomfort is better after she belches. Medicine team evaluated as well, felt symptoms were musculoskeletal in nature. Objective Vital Signs Date Time Temp Pulse Resp B/P (MAP) Pulse Ox O2 Delivery O2 Flow Rate FiO2 12/15/16 08:21 Room Air 12/15/16 07:18 36.5 92 15 100/68 (79) 98 Room Air 12/15/16 03:50 37.0 97 16 99/63 (75) 98 Nasal Cannula 2.0 12/14/16 23:25 Nasal Cannula 2.0 12/14/16 23:15 37.0 77 16 105/69 (81) 100 Nasal Cannula 2.0 12/14/16 22:00 36.7 106 106/71 (83) 97 Room Air 12/14/16 19:20 37.0 98 16 108/69 (82) 99 Room Air 12/14/16 15:57 36.8 96 18 101/68 (79) 98 Room Air 12/14/16 15:50 Room Air Physical Exam General Appearance: WD/WN, no apparent distress Neck: + pertinent finding (unchanged neck exam. ) Notes: Fiberoptic laryngoscopy was performed and pharynx and larynx are normal. Vocal cord mobility is normal. No edema. Laboratory Results Last 24 Hours Test 12/14/16 15:15 12/15/16 04:55 Calcium Level 8.4 mg/dl 8.6 mg/dl Assessment and Plan 21 yo female s/p completion thyroidectomy for follicular thyroid carcinoma - doing better now after belching some. Suspect her discomfort was GI upset related as all testing normal - ionized calcium normal at 1.17 this pm, she is also asymptomatic - will discharge home with close follow up later this week - discharge home on tums, pain med, keflex and thyroid hormone.
--- NOTE | 2016-12-15 12:33 | Discharge Summary ---
Discharge Summary Date of Service Dec 15, 2016. Discharge Summary Admission Date: Dec 14, 2016 at 09:39 Discharge Date: Dec 15, 2016 Discharge Disposition: Home Primary Diagnosis: Follicular thyroid carcinoma Secondary Diagnoses/Problems: Medical Problems: (1) Bartholin cyst Status: Acute (2) Neck pain on right side Status: Acute (3) Thyroid nodule Status: Acute Procedures: completion thyroidectomy Consultations: Internal medicine Discharge Instructions Last Recorded Wt (Kilograms): 50.910 Activity Recommendations: limitations (no strenuous activity for 2 weeks) Return to School/Work: limitations (2 weeks) Diet At Discharge: Regular Allergies: Coded Allergies: No Known Allergies (Verified , 12/14/16) Home Health Services: none Special Care: Call your doctor if: * Temperature above 101 degrees * Pain not relieved by pain medicine ordered * There is increased drainage or redness from any incision * You have any unanswered questions or concerns. Avoid all tobacco products. If you need help to stop smoking, call [place]'s FREE QUITLINE at . This is a free call. Admission Information Admission HPI: 21 yo female with follicular thyroid carcinoma noted at time of right hemithyroidectomy, presents for completion thyroidectomy Admission Physical Exam: Gen: AAOx3. NAD Neck: Low abdullahi incision noted Lungs: CTAB Heart: RRR Hospital Course 21 yo female with follicular thyroid carcinoma s/p completion thyroidectomy. Did well in initial post op period. Later in the night on POD 0, she started to complain of some left sided chest pain that radiated to left shoulder and intermittent shortness of breath. I did have an EKG performed which was normal. Chest x-ray was done which was essentially normal. CT/PE was also performed which was negative for PE. Expected post op fluid collection and minimal air in the op site noted. Patient observed the morning of POD 1 and internal medicine consult was obtained. They felt her chest pain was musculoskeletal in nature. At time of my re-evaluation at noon on POD 1 she was feeling better with improved chest pain and neck pain after belching. She was discharged home at that point. Of note her ionized calcium at time of discharge was 1.17 which was normal. She never had any perioral or fingertip paraesthesias. She will follow up in my office later this week. Total time spent on discharge = This includes examination of the patient, discharge planning, medication reconciliation, and communication with other providers.
[2016-12-15 12:39] LABS: ISTAT CREATININE 0.6 mg/dl; ISTAT HEMOGLOBIN 11.6 g/dl (12.0-16.0); ISTAT IONIZED CALCIUM 1.17 mmol/l
[2016-12-15 14:30] VITALS: BP 100/68; PULSE 92; TEMP 36.5; O2SAT 98
== END 2016-12-15 15:40 | disposition home or self-care (01) | DRG 627 ==
LOC: C.ACU 05:02 → C.MSW 09:39 → ENRESERV 10:01
PROVIDERS: ADMIT Otolaryngology; ATTEND Otolaryngology
PROC: 0GBG0ZZ Excision of Left Thyroid Gland Lobe, Open Approach (ICD-10-PCS; principal; 2016-12-14 07:15)
PROC: 0CJS8ZZ Inspection of Larynx, Via Natural or Artificial Opening Endoscopic (ICD-10-PCS; 2016-12-15)
DX: C73 Malignant neoplasm of thyroid gland (principal); R07.89 Other chest pain; R06.02 Shortness of breath; K30 Functional dyspepsia; Z79.3 Long term (current) use of hormonal contraceptives

== ENCOUNTER 2017-02-10 16:31 | Emergency (ER) | payer OTHER ==
[~2017-02-10] VITALS: Ht 162.6 cm; Wt 50.6 kg
[~2017-02-10 16:31] MED LIST changes: +CEPH500C2 PO; +LEVO100T PO; +OXYC-57 PO; +TUMS PO
[2017-02-10 16:33] VITALS: TEMP 37; Ht 162.6 cm; Wt 50.6 kg
[2017-02-10] MEDS ORDERED: SODIUM CHLORIDE 0.9% 1000ML 1,000 ML IV STA (16:57)
[2017-02-10 17:23] LABS: BASO % 0.2 %; BASO ABS # 0.01 K/uL (0-0.2); COMPLETE YES; EOS % 1.2 %; HEMATOCRIT 39.5 % (37-47); LYMPH % 37.3 %; LYMPH ABS # 1.89 K/uL (1.2-3.4); MEAN CORPUSCULAR HEMOGLOBIN 30.2 pg (25-34); MEAN CORPUSCULAR HGB CONC 34.7 g/dl (32-36); MEAN PLATELET VOLUME 9.1 fL (7.4-10.4); MONO % 15.6 %; NEUT % 45.7 %; PLATELET COUNT 270 K/uL (130-400); RED BLOOD COUNT 4.54 M/uL (4.2-5.4); WHITE BLOOD COUNT 5.07 K/uL (4.8-10.8)
[2017-02-10 17:56] LABS: BUN/CREATININE RATIO 12.4 (10-20); CALCIUM 8.7 mg/dl (8.5-10.1); CREATININE 0.81 mg/dl (0.60-1.20); POTASSIUM 3.8 mmol/L (3.5-5.1)
[2017-02-10 18:01] LABS: PREG INTERNAL NEGATIVE QC NEG CLEAR BACKGROUND; PREG INTERNAL POSITIVE QC POS CONTROL LINE
[2017-02-10] MEDS ORDERED: MUPIROCIN 2% OINT 22 GM TUBE EXT STA (18:51)
[2017-02-10] MEDS ORDERED: BCTROWC EXT (18:57)
[2017-02-10] MEDS ORDERED: METH4PAK PO (18:57)
--- NOTE | 2017-02-10 19:18 | EMERGENCY ROOM VISIT NOTE ---
History Report prepared by Aleks: Elke Koch Under the Supervision of: Dr. Christopher Doyle M.D. First contact with patient: 16:42 Chief Complaint: ALLERGIC REACTION Stated Complaint: REACTION TO THYROGEN INJECTION History of Present Illness The patient is a 21 year old female who presents to the Emergency Room with complaints of a worsening allergic reaction starting yesterday. The patient is currently being treated for thyroid cancer which was discovered a few months ago. She received her first injection of Thyrogen yesterday. Around 4 hours later, she started having a rash on her torso, nausea, vomiting, and diarrhea. She has never had these symptoms before. She was to have another injection today , but her treatment was stopped because of her reaction. The rash worsened today and spread down her abdomen. The rash is painful and not itchy. She is still having diarrhea and nausea. She has not vomited today. She has abdominal pain. She denies any hematochezia, melena, SOB, mouth, lip, tongue swelling, chest pain, headache, or fever. She is on Synthroid and no other medications. Her thyroid has been completely removed. She denies any chance of . No one at home has a similar rash. Source of History: patient Onset: yesterday Position: other (global) Quality: other (allergic reaction) Timing: worsening Associated Symptoms: + nausea, + vomiting, + abdominal pain, + diarrhea, + rash, No fevers, No headache, No chest pain, No SOB, No melena, No hematochezia Note: Pt denies mouth, hip, tongue swelling. Review of Systems See HPI for pertinent positives & negatives. A total of 10 systems reviewed and were otherwise negative. Past Medical & Surgical Medical Problems: (1) Follicular thyroid cancer (2) Headache (3) SYNCOPE AND COLLAPSE Old medical records were reviewed. Nurse's notes were reviewed and I agree with. Family History Cancer Diabetes mellitus Gallbladder disease Heart disease Hypertension Seizures Social History Smoking Status: Never Smoker Alcohol Use: none Drug Use: none Marital Status: single Occupation Status: student Current/Historical Medications Scheduled Calcium Carbonate (Tums), 1,500 MG PO TID Levothyroxine Sodium (Synthroid), 1 TAB PO DAILY Medroxyprogesterone Acetate (C (Depo-Provera Contraceptiv), 1 DOSE INJ every 3 months Methylprednisolone (Medrol Dosepak), 0 PO DAILY Mupirocin (Bactroban 2% Oint), 1 APPLN EXT BID Scheduled PRN Oxycodone/Acetaminophen 5MG/325MG (Percocet 5MG/325MG), 1-2 TABLETS PO q4-6 PRN for Pain Allergies Coded Allergies: No Known Allergies (Verified , 02/10/17) Physical Exam Vital Signs Date Time Temp Pulse Resp B/P (MAP) Pulse Ox O2 Delivery O2 Flow Rate FiO2 02/10/17 19:34 111 10 123/93 98 02/10/17 18:23 97 18 98/61 98 Room Air 02/10/17 16:33 37.0 112 20 113/79 98 Room Air Physical Exam General: Non ill appearing slender young female in no acute distress, speaking and swallowing without difficulty. Well developed well nourished, breathing comfortably on room air. Normal speech HEENT: Normal cephalic atraumatic. Pupils are equal round and reactive to light. Extraocular movements are intact. Oropharynx is pink with moist mucous membranes. No swelling of the posterior oropharynx. No swelling of the mouth lips or tongue. Neck: Supple with a midline trachea. No meningeal signs or stiffness, no JVD or bruits. No Stridor. Scar from thyroid removal. Chest: Clear to auscultation bilaterally. No wheezes or rhonchi. No increased work of breathing. Heart: regular rate and rhythm. Abdomen: Soft nontender, nondistended without rebound guarding or rigidity. Extremities: No cyanosis clubbing or edema. No calf tenderness or assymetry Spine/Back. Non tender to palpation. No CVA tenderness Skin: Multiple raised small rash with some pustules to bilateral flanks. Neurologic exam: Cranial nerves two through 12 are intact. Motor and sensation are intact and symmetrical throughout. Medical Decision & Procedures Laboratory Results 02/10/17 17:15 Red Blood Count 4.54, Mean Corpuscular Volume 87.0, Mean Corpuscular Hemoglobin 30.2, Mean Corpuscular Hemoglobin Concent 34.7, Mean Platelet Volume 9.1, Neutrophils (%) (Auto) 45.7, Lymphocytes (%) (Auto) 37.3, Monocytes (%) (Auto) 15.6, Eosinophils (%) (Auto) 1.2, Basophils (%) (Auto) 0.2, Neutrophils # (Auto ) 2.32, Lymphocytes # (Auto) 1.89, Monocytes # (Auto) 0.79, Eosinophils # (Auto ) 0.06, Basophils # (Auto) 0.01 02/10/17 17:15 Test 02/10/17 17:15 White Blood Count 5.07 K/uL (4.8-10.8) Red Blood Count 4.54 M/uL (4.2-5.4) Hemoglobin 13.7 g/dL (12.0-16.0) Hematocrit 39.5 % (37-47) Mean Corpuscular Volume 87.0 fL (80-100) Mean Corpuscular Hemoglobin 30.2 pg (25-34) Mean Corpuscular Hemoglobin Concent 34.7 g/dl (32-36) Platelet Count 270 K/uL (130-400) Mean Platelet Volume 9.1 fL (7.4-10.4) Neutrophils (%) (Auto) 45.7 % Lymphocytes (%) (Auto) 37.3 % Monocytes (%) (Auto) 15.6 % Eosinophils (%) (Auto) 1.2 % Basophils (%) (Auto) 0.2 % Neutrophils # (Auto) 2.32 K/uL (1.4-6.5) Lymphocytes # (Auto) 1.89 K/uL (1.2-3.4) Monocytes # (Auto) 0.79 K/uL (0.11-0.59) Eosinophils # (Auto) 0.06 K/uL (0-0.5) Basophils # (Auto) 0.01 K/uL (0-0.2) RDW Standard Deviation 39.2 fL (36.4-46.3) RDW Coefficient of Variation 12.2 % (11.5-14.5) Immature Granulocyte % (Auto) 0.0 % Immature Granulocyte # (Auto) 0.00 K/uL (0.00-0.02) Anion Gap 6.0 mmol/L (3-11) Est Creatinine Clear Calc Drug Dose 88.5 ml/min Estimated GFR () 121.2 Estimated GFR (Non- 104.6 BUN/Creatinine Ratio 12.4 (10-20) Calcium Level 8.7 mg/dl (8.5-10.1) Total Bilirubin 0.3 mg/dl (0.2-1) Direct Bilirubin 0.1 mg/dl (0-0.2) Aspartate Amino Transf (AST/SGOT) 13 U/L (15-37) Alanine Aminotransferase (ALT/SGPT) 20 U/L (12-78) Alkaline Phosphatase 80 U/L (45-117) Total Protein 7.7 gm/dl (6.4-8.2) Albumin 4.2 gm/dl (3.4-5.0) Lipase 114 U/L (73-393) Human Chorionic Gonadotropin, Qual NEG (NEG) Laboratory studies as stated above per my review. Medications Administered Medications (Trade) Dose Ordered Sig/Kaye Route Start Time Stop Time Status Last Admin Dose Admin Sodium Chloride 1,000 ml @ 999 mls/hr Q1H1M STAT IV 02/10/17 16:57 02/10/17 17:57 DC 02/10/17 16:57 999 MLS/HR Prednisone (PredniSONE TAB) 60 mg NOW STAT PO 02/10/17 18:51 02/10/17 18:54 DC 02/10/17 19:07 60 MG Mupirocin (Bactroban 2% Oint) 1 appln NOW STAT EXT 02/10/17 18:51 02/10/17 18:54 DC 02/10/17 19:33 1 APPLN ED Course 1645: Past medical records reviewed. The patient was evaluated in room C3, and a complete history and physical examination were performed. 1657: NSS 1000 ml @ 999 mls/hr IV. 1818: I reevaluated the patient. She is resting comfortably. 183: I discussed the patient's case with Dr. Ko, [facility] endocrinology. He thinks that it is highly unlikely that her rash is related to the Thyrogen. He believes it is coincidental. She should follow up as outpatient. 184: Upon reevaluation, the patient is doing well. I discussed the results and treatment plan with her. She verbalized agreement of the treatment plan. The patient was discharged home. 1851: Mupirocin 1 appln EXT, Prednisone 60 mg PO. Medical Decision Differentials include, but are not limited to; allergic reaction, infection, electrolyte or metabolic abnormality, thyroid disease. This patient comes in as described above. She has thyroid cancer and his of thyroidectomy. She is on replacement . She had Thyrogen injection yesterday and is supposed to have another one today. About 4 hours later, she had some nausea and diarrhea the nausea has resolved. She also noticed the rash is primarily on her flanks. On exam, it looks like pustules in places. It's is not consistent with urticaria or rash. It is bilateral. She's no airway compromise or any other signs of allergic reaction. She looks well. IV access established and she was hydrated with IV normal saline. Blood work was obtained and was unremarkable. She's no significant electrolyte or metabolic abnormalities. She has Nothing to suggest sepsis or significant infection here. I did talk to our pharmacists and she said the the nausea vomiting could be related to this but did not have a definite explanation for the rash. I also called and talked to the product safety specialist at [facility] and he felt this was most likely coincidental and on related to the Thyrogen injection. I talked to the patient and her mother at length. I will put her on Bactroban ointments to cover the possibly for folliculitis. I will also have her use a couple days with this prednisone in case there is an allergic component although I think that's less likely. She is given prednisone here as well as persistent for Medrol Dosepak . She has Benadryl if needed as well I encouraged to follow-up with her regular doctor and product safety specialist next 1-2 dyas for recheck and return ER if: Worsening of symptoms, fever or chills, shortness of breath, any new problems or concerns. She is happy the plan and discharged to home. Medication Reconcilliation Current Medication List: was personally reviewed by me Blood Pressure Screening Patient's blood pressure: Normal blood pressure Blood pressure disposition: Did not require urgent referral Consults Time Called: 1822 Consulting Physician: Dr. Ko, [facility] endocrinology Returned Call: [phone] I discussed the patient's case with him. He thinks that it is highly unlikely that her rash is related to the Thyrogen. He believes it is coincidental. She should follow up as outpatient. Impression Primary Impression: Folliculitis Additional Impressions: Medication reaction Follicular thyroid cancer Scribe Attestation The scribe's documentation has been prepared under my direction and personally reviewed by me in its entirety. I confirm that the note above accurately reflects all work, treatment, procedures, and medical decision making performed by me. Departure Information Dispostion Home / Self-Care Prescriptions Methylprednisolone (MEDROL DOSEPAK) 4 Mg Luis 0 PO DAILY, #1 PKT Prov: Christopher Doyle M.D. 02/10/17 Mupirocin (Bactroban 2% Oint) 66 Appln/22 Gm Oint 1 APPLN EXT BID for 7 Days, #1 TUBE Prov: Christopher Doyle M.D. 02/10/17 Referrals Aston Mayfield M.D. (PCP) Forms HOME CARE DOCUMENTATION FORM, IMPORTANT VISIT INFORMATION Patient Instructions My [facility] Additional Instructions Rest. Use Medrol Dosepak as directed-steroid Apply Bactroban twice a day to rash Return if: Worsening of symptoms, fever or chills, shortness of breath, any new problems or concerns May use Benydryl (diphenhydramine) 25 mg every 8 hours if needed for itching Benadryl may make you drowsy- do not take before drinking, driving, working Follow-up with your doctor in 1-2 days for recheck. Problem Qualifiers
[2017-02-10 19:34] VITALS: BP 123/93; PULSE 111; O2SAT 98
== END 2017-02-10 19:36 | disposition home or self-care (01) ==
LOC: C.EDB 16:32 → C.EDC 19:36
DX: T50.995A Adverse effect of other drugs, medicaments and biological substances, initial encounter (principal); L73.9 Follicular disorder, unspecified; C73 Malignant neoplasm of thyroid gland; Z79.899 Other long term (current) drug therapy; Z80.9 Family history of malignant neoplasm, unspecified; Z83.3 Family history of diabetes mellitus; Z83.79 Family history of other diseases of the digestive system; Z82.49 Family history of ischemic heart disease and other diseases of the circulatory system; Z82.0 Family history of epilepsy and other diseases of the nervous system

== ENCOUNTER 2017-04-21 11:42 | Emergency (ER) | payer BC, OTHER ==
[~2017-04-21] VITALS: Ht 162.6 cm; Wt 51.8 kg
[~2017-04-21 11:42] MED LIST changes: -CEPH500C2 PO
[2017-04-21 11:45] VITALS: TEMP 36.9; Ht 162.6 cm; Wt 51.8 kg
[2017-04-21] MEDS ORDERED: LEVO100T7 PO (12:19)
[2017-04-21] MEDS ORDERED: [UNRECOGNIZED DRUG - OTHER] PO (12:19)
[2017-04-21 13:14] LABS: BUN/CREATININE RATIO 10.2 (10-20); CALCIUM 9.1 mg/dl (8.5-10.1); CREATININE 0.77 mg/dl (0.60-1.20); POTASSIUM 3.7 mmol/L (3.5-5.1)
[2017-04-21 13:21] LABS: BASO % 0.2 %; BASO ABS # 0.01 K/uL (0-0.2); COMPLETE YES; EOS % 0.9 %; HEMATOCRIT 43.4 % (37-47); IG% 0.2 %; LYMPH % 31.3 %; LYMPH ABS # 2.08 K/uL (1.2-3.4); MEAN CELL VOLUME 87.3 fL (80-100); MEAN CORPUSCULAR HGB CONC 34.3 g/dl (32-36); MEAN PLATELET VOLUME 9.6 fL (7.4-10.4); NEUT % 62.4 %; PLATELET COUNT 259 K/uL (130-400); RED BLOOD COUNT 4.97 M/uL (4.2-5.4); WHITE BLOOD COUNT 6.64 K/uL (4.8-10.8)
--- NOTE | 2017-04-21 13:32 | DIAGNOSTIC IMAGING REPORT ---
CHEST ONE VIEW PORTABLE HISTORY: 21 years-old Female swelling in neck acute swelling of the neck COMPARISON: Chest radiograph and CTA chest 12/14/2016 TECHNIQUE: Portable upright AP view of the chest FINDINGS: Cardiac mediastinal and hilar silhouettes are within normal limits. No pneumothorax, pleural effusion, focal airspace consolidation or overt pulmonary edema. Surgical clips project over the left mid neck region. The bones are grossly intact. IMPRESSION: No acute cardiopulmonary process. The above report was generated using voice recognition software. It may contain grammatical, syntax or spelling errors. Electronically signed by: Rajiv Dunne M.D. 04/21/2017 1:31 PM Dictated Date/Time: 04/21/2017 1:29 PM
--- NOTE | 2017-04-21 14:14 | DIAGNOSTIC IMAGING REPORT ---
SOFT TISSUE NECK HISTORY: 21 years-old Female swelling in neck acute swelling of the neck COMPARISON: Cervical spine radiographs 09/11/2016 TECHNIQUE: 2 views of the soft tissues of the neck FINDINGS: Surgical clips project over the left neck. There is no prevertebral soft tissue swelling or retropharyngeal collections identified. The trachea appears to be midline. The epiglottis and aryepiglottic folds are unremarkable. Cervical spine appears intact without acute fracture, subluxation or significant degenerative changes. Imaged lung apices are clear. IMPRESSION: Unremarkable radiographs of the soft tissues of the neck. The above report was generated using voice recognition software. It may contain grammatical, syntax or spelling errors. Electronically signed by: Rajiv Dunne M.D. 04/21/2017 2:13 PM Dictated Date/Time: 04/21/2017 2:11 PM
[2017-04-21 15:14] VITALS: BP 103/71; PULSE 97; O2SAT 97
--- NOTE | 2017-04-21 19:10 | EMERGENCY ROOM VISIT NOTE ---
History Report prepared by Aleks: Elke Koch Under the Supervision of: Dr. Win Gupta D.O. First contact with patient: 12:07 Chief Complaint: SWELLING TO EXTREMITY Stated Complaint: SWELLING TO NECK FROM RADIATION History of Present Illness The patient is a 21 year old female who presents to the Emergency Room with complaints of persistent neck swelling starting last night. The patient is currently being treated for thyroid cancer. She had her thyroid removed in 2 separate surgeries 5-6 months ago. She had radiation 2 days ago. She was given I -131. She was told that she could have some soreness and swelling. She noticed the throat swelling last night. When she woke up in the morning it was worsened. She came to the ED in case it starts to affect her breathing. The swelling is improved, but she still feels slightly SOB. Her neck feels slightly stiff. She is able to swallow. She denies any chest pain, nausea, vomiting, diarrhea, abdominal pain, or fever. She denies any other medical problems. Source of History: patient, parent Onset: last night Position: neck Quality: other (swelling) Timing: other (persistent) Associated Symptoms: + SOB, No fevers, No chest pain, No nausea, No vomiting , No abdominal pain, No diarrhea Note: Pt reports neck stiffness. Review of Systems See HPI for pertinent positives & negatives. A total of 10 systems reviewed and were otherwise negative. Past Medical & Surgical Medical Problems: (1) Follicular thyroid cancer (2) Headache (3) SYNCOPE AND COLLAPSE Family History Cancer Diabetes mellitus Gallbladder disease Heart disease Hypertension Seizures Social History Smoking Status: Never Smoker Alcohol Use: none Drug Use: none Marital Status: single Occupation Status: student Current/Historical Medications Scheduled Levothyroxine Sodium (Levothyroxine Sodium), 1 TAB PO DAILY Miscellaneous Medications [Radioactive Iodine], 1 TAB PO Allergies Coded Allergies: No Known Allergies (Verified , 04/21/17) Physical Exam Vital Signs Date Time Temp Pulse Resp B/P (MAP) Pulse Ox O2 Delivery O2 Flow Rate FiO2 04/21/17 15:14 97 16 103/71 97 Room Air 04/21/17 13:37 113/79 04/21/17 11:45 36.9 92 18 111/75 97 Physical Exam GENERAL: Sitting up in bed, talking in full sentences, no acute distress, non- toxic EYE EXAM: normal conjunctiva. OROPHARYNX: no exudate, no erythema, lips, buccal mucosa, and tongue normal and mucous membranes are moist NECK: supple, no nuchal rigidity, no adenopathy, non-tender, no stridor, linear scar over the thyroid with mild surrounding swelling, no erythema. Normal phonation. LUNGS: Clear to auscultation. Normal chest wall mechanics HEART: no murmurs, S1 normal and S2 normal ABDOMEN: abdomen soft, non-tender, normo-active bowel sounds, no masses, no rebound or guarding. SKIN: no rashes and no bruising UPPER EXTREMITIES: upper extremities are grossly normal. LOWER EXTREMITIES: No pitting edema. NEURO EXAM: Normal sensorium, cranial nerves II-XII grossly intact, normal speech, no gross weakness of arms, no gross weakness of legs. Medical Decision & Procedures ER Provider Diagnostic Interpretation: Radiology results as stated below per my review and the radiologist's interpretation: CHEST ONE VIEW PORTABLE HISTORY: 21 years-old Female swelling in neck acute swelling of the neck COMPARISON: Chest radiograph and CTA chest 12/14/2016 TECHNIQUE: Portable upright AP view of the chest FINDINGS: Cardiac mediastinal and hilar silhouettes are within normal limits. No pneumothorax, pleural effusion, focal airspace consolidation or overt pulmonary edema. Surgical clips project over the left mid neck region. The bones are grossly intact. IMPRESSION: No acute cardiopulmonary process. The above report was generated using voice recognition software. It may contain grammatical, syntax or spelling errors. Electronically signed by: Rajiv Dunne M.D. 04/21/2017 1:31 PM Dictated Date/Time: 04/21/2017 1:29 PM SOFT TISSUE NECK HISTORY: 21 years-old Female swelling in neck acute swelling of the neck COMPARISON: Cervical spine radiographs 09/11/2016 TECHNIQUE: 2 views of the soft tissues of the neck FINDINGS: Surgical clips project over the left neck. There is no prevertebral soft tissue swelling or retropharyngeal collections identified. The trachea appears to be midline. The epiglottis and aryepiglottic folds are unremarkable. Cervical spine appears intact without acute fracture, subluxation or significant degenerative changes. Imaged lung apices are clear. IMPRESSION: Unremarkable radiographs of the soft tissues of the neck. The above report was generated using voice recognition software. It may contain grammatical, syntax or spelling errors. Electronically signed by: Rajiv Dunne M.D. 04/21/2017 2:13 PM Dictated Date/Time: 04/21/2017 2:11 PM Laboratory Results 04/21/17 12:40 Red Blood Count 4.97, Mean Corpuscular Volume 87.3, Mean Corpuscular Hemoglobin 30.0, Mean Corpuscular Hemoglobin Concent 34.3, Mean Platelet Volume 9.6, Neutrophils (%) (Auto) 62.4, Lymphocytes (%) (Auto) 31.3, Monocytes (%) (Auto) 5.0, Eosinophils (%) (Auto) 0.9, Basophils (%) (Auto) 0.2, Neutrophils # (Auto) 4.15, Lymphocytes # (Auto) 2.08, Monocytes # (Auto) 0.33, Eosinophils # (Auto) 0.06, Basophils # (Auto) 0.01 04/21/17 12:40 Test 04/21/17 12:40 White Blood Count 6.64 K/uL (4.8-10.8) Red Blood Count 4.97 M/uL (4.2-5.4) Hemoglobin 14.9 g/dL (12.0-16.0) Hematocrit 43.4 % (37-47) Mean Corpuscular Volume 87.3 fL (80-100) Mean Corpuscular Hemoglobin 30.0 pg (25-34) Mean Corpuscular Hemoglobin Concent 34.3 g/dl (32-36) Platelet Count 259 K/uL (130-400) Mean Platelet Volume 9.6 fL (7.4-10.4) Neutrophils (%) (Auto) 62.4 % Lymphocytes (%) (Auto) 31.3 % Monocytes (%) (Auto) 5.0 % Eosinophils (%) (Auto) 0.9 % Basophils (%) (Auto) 0.2 % Neutrophils # (Auto) 4.15 K/uL (1.4-6.5) Lymphocytes # (Auto) 2.08 K/uL (1.2-3.4) Monocytes # (Auto) 0.33 K/uL (0.11-0.59) Eosinophils # (Auto) 0.06 K/uL (0-0.5) Basophils # (Auto) 0.01 K/uL (0-0.2) RDW Standard Deviation 39.5 fL (36.4-46.3) RDW Coefficient of Variation 12.3 % (11.5-14.5) Immature Granulocyte % (Auto) 0.2 % Immature Granulocyte # (Auto) 0.01 K/uL (0.00-0.02) Anion Gap 6.0 mmol/L (3-11) Est Creatinine Clear Calc Drug Dose 95.3 ml/min Estimated GFR () 128.8 Estimated GFR (Non- 111.1 BUN/Creatinine Ratio 10.2 (10-20) Calcium Level 9.1 mg/dl (8.5-10.1) Thyroid Stimulating Hormone (TSH) 117.000 uIu/ml (0.300-4.500) Laboratory results per my review. ED Course ED COURSE: Vital signs were reviewed and showed normal vitals The patients medical record was reviewed The above diagnostic studies were performed and reviewed. ED treatments and interventions as stated above. 1220: The patient was evaluated in room A12B. A complete history and physical examination was performed. 1432: I reevaluated the patient. I updated her on the results. 1436: I discussed the patient's case with Dr. Enriquez, [facility] endocrinology. He recommends outpatient follow up and Motrin as needed. 1500: Upon reevaluation, the patient is resting comfortably.I discussed my findings with the patient and she understands and agrees with the treatment plan. Based on the patients age, coexisting illnesses, exam and lab findings the decision to treat as an outpatient was made. The patient remained stable while under my care. The patient appeared well at the time of discharge. Medical Decision Differential diagnoses includes but is not limited to radiation swelling, retropharyngeal abscess, peritonsillar abscess, Julio Cesar's angina, esophageal tear. Patient is a 21-year-old female who presents to ER for swelling of her throat. She has a history of thyroid cancer with a resection. On Wednesday she received radiated iodine. She has a swelling started this morning. No significant pain. She is able to tolerate secretions and swallow. No stridor. Otherwise well-appearing. There is no significant swelling. No signs of Julio Cesar's angina. X-ray of the neck was unremarkable. CBC and BMP was unremarkable. TSH was elevated. Discussed with endocrinology from [facility]. They note this is expected. Patient family were updated bedside. They're discharged follow- up with PCP and endocrinology. Discussed with Pt concerning signs and symptoms to watch out for. Pt was instructed to follow up with their PCP and discussed with the patient their option to return to the ED at anytime for persistent or worsening symptoms. The appropriate anticipatory guidance and out-patient management, including indications for return to the emergency department, were explained at length to the patient and understood. Medication Reconcilliation Current Medication List: was personally reviewed by me Blood Pressure Screening Patient's blood pressure: Normal blood pressure Blood pressure disposition: Did not require urgent referral Consults Time Called: 1432 Consulting Physician: Dr. Enriquez, [facility] endocrinology Returned Call: [phone] I discussed the patient's case with him. He recommends outpatient follow up and Motrin as needed. Impression Primary Impression: Neck swelling Scribe Attestation The scribe's documentation has been prepared under my direction and personally reviewed by me in its entirety. I confirm that the note above accurately reflects all work, treatment, procedures, and medical decision making performed by me. Departure Information Dispostion Home / Self-Care Referrals Aston Mayfield M.D. (PCP) Forms HOME CARE DOCUMENTATION FORM, IMPORTANT VISIT INFORMATION, WORK / SCHOOL INSTRUCTIONS Patient Instructions My [facility] Additional Instructions Please follow up with your primary care doctor or endocrinology with in the next 24 hours. Any worsening of your symptoms, please return to the ED immediately. This includes any fevers greater than 100.4, trouble swallowing, increased swelling, trouble breathing, worsening pain, chest pain, shortness breath, persistent nausea, vomiting, unable to eat or drink, or any other concerning signs or symptoms from your standpoint. Please take Tylenol or Motrin as needed for pain.
== END 2017-04-21 15:14 | disposition home or self-care (01) ==
LOC: C.EDB 11:44 → C.EDA 15:14
DX: R22.1 Localized swelling, mass and lump, neck (principal); R55 Syncope and collapse; C73 Malignant neoplasm of thyroid gland; Z83.3 Family history of diabetes mellitus; Z82.49 Family history of ischemic heart disease and other diseases of the circulatory system; Z82.0 Family history of epilepsy and other diseases of the nervous system

== ENCOUNTER → 2017-11-09 | Outpatient (CLI) | payer BC ==
[~2017-11-09] MED LIST changes: -LEVO100T PO; +LEVO100T7 PO; -MEDR150I INJ; -OXYC-57 PO; -TUMS PO; +[UNRECOGNIZED DRUG - OTHER] PO
== END | disposition home or self-care (01) ==
LOC: C.LABBC 09:22
PROVIDERS: ATTEND Family Medicine Adult Medicine
DX: R00.0 Tachycardia, unspecified (principal); Z85.850 Personal history of malignant neoplasm of thyroid

== ENCOUNTER → 2018-01-12 | Outpatient (CLI) | payer BC ==
[~2018-01-12] MED LIST changes: -LEVO100T7 PO; +LEVO75TA PO; +PANT40TA PO; +SERT1TAB71 PO; -[UNRECOGNIZED DRUG - OTHER] PO
== END | disposition home or self-care (01) ==
LOC: C.LABSPEC 07:19
PROVIDERS: ATTEND Family Medicine Adult Medicine
DX: R19.7 Diarrhea, unspecified (principal)

== ENCOUNTER → 2018-01-17 | Outpatient (CLI) | payer BC ==
[2018-01-17 17:00] LABS: BASO % 0.2 %; BASO ABS # 0.01 K/uL (0-0.2); EOS ABS # 0.06 K/uL (0-0.5); HEMATOCRIT 38.1 % (37-47); HEMOGLOBIN 13.1 g/dL (12.0-16.0); IG# 0.01 K/uL (0.00-0.02); LYMPH ABS # 2.26 K/uL (1.2-3.4); MEAN CELL VOLUME 87.6 fL (80-100); MEAN CORPUSCULAR HEMOGLOBIN 30.1 pg (25-34); MEAN CORPUSCULAR HGB CONC 34.4 g/dl (32-36); MEAN PLATELET VOLUME 9.5 fL (7.4-10.4); MONO ABS # 0.55 K/uL (0.11-0.59); NEUT % 52.6 %; NEUT ABS # 3.21 K/uL (1.4-6.5); PLATELET COUNT 307 K/uL (130-400); RED CELL DISTRIBUTION WIDTH CV 12.6 % (11.5-14.5); RED CELL DISTRIBUTION WIDTH SD 40.8 fL (36.4-46.3)
[2018-01-17 17:20] LABS: ALBUMIN 4.6 gm/dl (3.4-5.0); ALKALINE PHOSPHATASE 70 U/L (45-117); ALT/SGPT 22 U/L (12-78); AST/SGOT 15 U/L (15-37); BLOOD UREA NITROGEN 14 mg/dl (7-18); CARBON DIOXIDE 27 mmol/L (21-32); CREATININE 0.84 mg/dl (0.60-1.20); GLUCOSE 85 mg/dl (70-99); LIPASE 125 U/L (73-393); POTASSIUM 3.7 mmol/L (3.5-5.1); SODIUM 140 mmol/L (136-145)
== END | disposition home or self-care (01) ==
LOC: C.LABBC 14:55
PROVIDERS: ATTEND Family Medicine Adult Medicine
DX: R00.0 Tachycardia, unspecified (principal); Z85.850 Personal history of malignant neoplasm of thyroid; R19.7 Diarrhea, unspecified

== ENCOUNTER 2020-12-30 09:54 | Inpatient (IN) ==
[2020-12-30] MEDS ORDERED: OXYTOCIN 30 UNITS/500 ML BAG IV PRN ×2 (10:22→15:25)
--- NOTE | 2020-12-30 10:37 | History & Physical Report ---
Date of Service December 30, 2020 Assessment & Plan (1) : . 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 Her was c/b chlamydia at new ob visit. She is having contractions; some movement; no fluid loss; but some bloody show Had regular appointments with OB. Labs: Blood type: O positive Antibody screen: negative Rubella: immune VDRL/RPR: non reactive Gonorrhea: negative Chlamydia: positive HIV: negative HbSAg: negative GBS: negative Other screens: cff-DNA: declined Allergies Allergy/AdvReac Type Severity Reaction Status Date / Time thyrotropin Allergy Unknown RASH Verified 12/30/20 10:02 Home Medications Medication Instructions Recorded Confirmed Type prenat.vits,mary,ltl-vnqg-euegb 1 tab PO DAILY 05/10/20 12/30/20 History ferrous sulfate 325 mg (65 mg 325 mg PO DAILY 11/11/20 12/30/20 History iron) tablet levothyroxine 125 mcg tablet 125 mcg PO DAILY #30 tab 12/16/20 12/30/20 Rx Patient History Medical History Headache History of thyroid cancer Hurthle cell carcinoma of thyroid Hx of duodenal ulcer Hypothyroidism, postablative Myalgia Varicella vaccination Vitamin D deficiency Surgical History H/O total thyroidectomy 12/14/2016 History of colonoscopy 12/12/2012 Family History Grandmother Breast cancer Mother Gallbladder disease Lung cancer metastatic to brain Asthma Sister Asthma Seizure Gallbladder disease Other Cancer Denies family history of Ovarian cancer Prostate cancer Colorectal cancer Social History Smoking Status: Never smoker Second Hand Exposure: No; Hx Alcohol Use: No Hx Substance Use: No Preferred Language: Frisian Communication Ability: Effective Visual Impairment: Limited Hearing Ability: Normal Beliefs That Will Affect Care: None marital status: Single marital status details: Andres Wharton (24) [phone] Current Living Situation: Significant Other Current Living Situation Comment: lives with fob, cats-fob changing litter current occupational status: student current occupation: F[employer]ER but recent graduate of [employer]. [facility] Other Information That Helps Us Care for You: No Feels Safe at Home: Yes Safety Concerns: Feels Safe At This Time caffeine: No Dental Care, Regularly: Yes Physical Activity Frequency: 5-6 Times per Week Seatbelt Use: always Sunscreen Use: No Assistive Devices: None Physical Exam Physical Exam: General: Alert, oriented. No acute distress. Cardiac: Regular rate and rhythm, no murmurs/rubs/gallops. Respiratory: Clear to auscultation bilaterally a/p, no wheezes/rales/rhonchi. No increased work of breathing. Symmetrical chest rise. No respiratory distress. Pelvic: Dilation 5 cm; Effacement 100; Station -[address] Padilla Lower Extremities: No lower extremity edema or swelling. No deep calf pain. Gi's negative bilaterally Baseline: 120 with accels Results & Data ([facility]) Vital Signs (Past 12 Hours) Vital Signs Temp Pulse Resp BP 12/30/20 10:00 36.4 C L 20 12/30/20 09:58 86 124/86 Code Status & VTE Plan VTE Prophylaxis Plan VTE Prophylaxis will be ordered: No Supervising Physician Co-Signing Physician Notes Resident Physician Supervision Note: I was present with Dr. Rodriguez during the history and exam. I discussed the case with the resident and agree with the findings and plan as documented in the note. Any exceptions or clarifications are listed here: admit in labor. ct neg at 36wks. plan arom when comfortable, requests epidural. fhts categ 1. Documented By: Lillie Padilla MD, FACOG
[2020-12-30] MEDS: LACTATED RINGER'S 1,000 ML IV PRN ×2 (10:41→11:40)
[2020-12-30 10:50] LABS: Hematocrit (blood only) 33.5 % (37-47); Mean Corpuscular Hemoglobin 27.5 pg (25-34); Mean Corpuscular Hgb Conc 32.8 g/dL (32-36); Mean Corpuscular Volume 83.8 fL (80-100); Mean Platelet Volume 10.1 fL (7.4-10.4); Platelet Count 329 K/uL (130-400); RDW Coefficient of Variation 16.2 % (11.5-14.5); RDW Standard Deviation 49.8 fL (36.4-46.3); White Blood Count 16.13 K/uL (4.8-10.8)
[2020-12-30] MEDS ORDERED: BUPIVACAINE 0.25% 30 ML VIAL ONE (10:54)
[2020-12-30] MEDS ORDERED: SODIUM CHLORIDE 0.9% INJ 10 ML VIAL ONE (10:54)
[2020-12-30] MEDS ORDERED: fentaNYL citrate 100 MCG/2 ML VIAL ONE (10:54)
[2020-12-30] MEDS ORDERED: ePHEDrine sulfate 50 MG/ML AMP ONE (10:54)
[2020-12-30] MEDS ORDERED: fentaNYL 2MCG/ML ROPIVACAINE 1.25MG/ML 100 ML BAG EPI ONE (10:55)
--- NOTE | 2020-12-30 11:52 | Anesthesiology Consultation ---
Date of Service December 30, 2020 Assessment & Plan Chart Review Chart Review: Acceptable Risk for Labor Epidural Consults Requested none History Height/Weight Height: 5 ft 4 in Weight: 66.224 kg Allergies Allergy/AdvReac Type Severity Reaction Status Date / Time thyrotropin Allergy Unknown RASH Verified 12/30/20 10:02 Medications Home Medications Medication Instructions Recorded Confirmed Last Taken prenat.vits,mray,hvj-jjbo-wntne 1 tab PO DAILY 05/10/20 12/30/20 12/30/20 07:30 ferrous sulfate 325 mg (65 mg 325 mg PO DAILY 11/11/20 12/30/20 12/30/20 07:30 iron) tablet levothyroxine 125 mcg tablet 125 mcg PO DAILY #30 tab 12/16/20 12/30/20 12/30/20 07:30 Active Medications Generic Name Dose Route Start Last Admin Trade Name Freq PRN Reason Stop Dose Admin Lactated Ringer's 1,000 mls @ 125 mls/hr 12/30/20 10:22 12/30/20 11:40 Lr IV 01/01/21 10:21 125 mls/hr .Q8H PRN Administration L&D Protocol Protocol Past Medical History Medical History Headache History of thyroid cancer Hurthle cell carcinoma of thyroid Hx of duodenal ulcer Hypothyroidism, postablative Myalgia Varicella vaccination Vitamin D deficiency Past Family History Family History Grandmother Breast cancer Mother Gallbladder disease Lung cancer metastatic to brain Asthma Sister Asthma Seizure Gallbladder disease Other Cancer Denies family history of Ovarian cancer Prostate cancer Colorectal cancer Past Surgical History Surgical History H/O total thyroidectomy 12/14/2016 History of colonoscopy 12/12/2012 Social History Smoking Status: Never smoker Hx Alcohol Use: No Hx Substance Use: No substance use type: does not use Physical Exam Vital Signs Last Vital Signs Temp 36.4 C L 12/30/20 10:00 Pulse 93 H 12/30/20 11:49 Resp 20 12/30/20 10:00 BP 121/77 12/30/20 11:49 Pulse Ox 100 12/30/20 11:48 Testing Laboratory Results 12/30/20 10:41
[2020-12-30] MEDS ORDERED: NALOXONE HCL 1 MG in SODIUM CHLORIDE 0.9% 1000ML 1,000 ML IV PRN (11:54)
[2020-12-30] MEDS ORDERED: fentaNYL 2MCG/ML ROPIVACAINE 1.25MG/ML 100 ML BAG EPI PRN (11:54)
[2020-12-30] MEDS ORDERED: diphenhydrAMINE 50 MG/ML VIAL IV PRN (11:54)
[2020-12-30] MEDS ORDERED: ePHEDrine sulfate 50 MG/ML AMP IV PRN (11:54)
[2020-12-30] MEDS ORDERED: NALBUPHINE HCL INJ 10 MG/ML AMP IV PRN (11:54)
[2020-12-30] MEDS ORDERED: NALOXONE HCL 0.4 MG/1 ML VIAL/CARP IV PRN (11:54)
--- NOTE | 2020-12-30 13:23 | Labor Progress Brief Note ---
Date of Service December 30, 2020 Subjective Reason For Note: Routine Evaluation comfortable with epidural Assessment & Plan (1) Active labor at term: stable, good progress. anticip 2nd stage soon, fhts categ 1. Admission and Anticipated Discharge Date Admission Date: December 30, 2020 Physical Exam 2 Constitutional: WD/WN, vitals as above Genitourinary: Manual OB Exam: + cervical dilation 9 cm, + cervical effacement 100%, + station + 1 and + amniotic fluid (AROM) clear OB Exam Monitor Tracing: + external FHT monitor used, + external uterine monitor used (q2), + category I and + normal FHT variability Results & Data ([place]) Vital Signs (Past 12 Hours) Vital Signs Temp Pulse Resp BP Pulse Ox 12/30/20 13:20 77 122/83 12/30/20 13:18 75 99 12/30/20 13:15 78 127/79 12/30/20 13:13 81 99 12/30/20 13:09 81 121/78 12/30/20 13:08 83 99 12/30/20 13:06 80 118/79 12/30/20 13:03 87 99 12/30/20 13:00 97.3 F L 90 18 118/82 12/30/20 12:58 96 H 100 12/30/20 12:56 94 H 115/75 12/30/20 12:53 85 99 12/30/20 12:51 86 115/81 12/30/20 12:48 93 H 100 12/30/20 12:45 20 12/30/20 12:44 100 H 118/84 12/30/20 12:43 97 H 100 12/30/20 12:39 99 H 114/79 12/30/20 12:38 97 H 100 12/30/20 12:34 85 117/82 12/30/20 12:33 81 100 12/30/20 12:30 94 H 18 115/80 12/30/20 12:28 92 H 100 12/30/20 12:26 82 117/73 12/30/20 12:23 92 H 100 12/30/20 12:20 84 117/77 12/30/20 12:18 88 99 12/30/20 12:15 81 18 116/77 12/30/20 12:13 96 H 100 12/30/20 12:11 78 118/76 12/30/20 12:08 88 100 12/30/20 12:04 81 116/76 12/30/20 12:03 89 99 12/30/20 12:00 90 20 112/73 12/30/20 11:58 96 H 100 12/30/20 11:55 97.5 F L 88 20 110/72 12/30/20 11:53 94 H 100 12/30/20 11:50 18 12/30/20 11:49 93 H 121/77 12/30/20 11:48 92 H 100 12/30/20 11:47 91 H 124/79 12/30/20 11:45 94 H 126/82 12/30/20 11:43 92 H 125/81 100 12/30/20 11:41 92 H 130/92 12/30/20 11:40 18 12/30/20 11:39 84 134/92 12/30/20 11:38 82 100 12/30/20 11:37 98 H 137/90 12/30/20 11:33 91 H 100 12/30/20 11:28 100 H 100 12/30/20 11:23 98 H 100 12/30/20 11:18 83 100 12/30/20 11:13 82 100 12/30/20 10:00 97.5 F L 12/30/20 09:58 86 124/86 Coding Level of Care Code None Diagnoses Active labor at term
--- NOTE | 2020-12-30 15:23 | Delivery Summary ---
Vaginal Delivery Summary Date of Service December 30, 2020 Vaginal Delivery Summary and 2nd Degree LAC The patient dilated to complete and pushed to deliver a viable male infant Apgars 8 and 9 via over small 2nd degree perineal laceration. Mouth and nose bulb suctioned at perineum. Shoulders and body delivered with ease. was vigorous and crying at . Cord clamped at 30 seconds of life and to maternal abdomen where the cord was then doubly clamped and cut. Placenta delivered spontaneously and intact, three-vessel cord. Hemostasis achieved with dilute pitocin and uterine massage and drainage of the bladder for approximately 300 cc under sterile conditions. Laceration repaired in usual fashion with 3-0 vicryl and right labial laceration reapproximated with 4-0 vicryl in interrupted sutures. Cervix and sulci intact. EBL 300 cc. Mother and baby stable recovery. [facility] [place] Charge Vaginal Delivery Codes: 35716 global code for the antepartum, delivery, and post- Delivery Type Details: and 2nd Degree LAC
[2020-12-30] MEDS ORDERED: ACETAMINOPHEN 325 MG TAB PO PRN (15:25)
[2020-12-30] MEDS ORDERED: oxyCODONE/ACETAMINOPHEN 5mg/325mg TAB PO PRN (15:25)
[2020-12-30] MEDS ORDERED: OXYTOCIN 20 UNITS in LACTATED RINGER'S 1,000 ML IV SCH (15:30)
[2020-12-30] MEDS ORDERED: DIPHTHERIA/TETANUS/PERTUSSIS 0.5 ML SYR/VIAL IM ONE (16:09)
[2020-12-30] MEDS ORDERED: BENZOCAINE 20% AER SPR 82.5 GM CAN EXT PRN (16:09)
[2020-12-30] MEDS ORDERED: HYDROCORTISONE ACETATE 25 MG SUPP PR PRN (16:09)
[2020-12-30] MEDS ORDERED: SUPERCREAM 0.870% 15 GM JAR EXT PRN (16:09)
--- NOTE | 2020-12-30 17:51 | Anesthesiology Progress Note ---
Date of Service December 30, 2020 Anesthesia Post Procedure Vital Signs Vital Signs: Temp Pulse Resp BP Pulse Ox 12/30/20 17:22 36.7 C 97 H 20 133/87 12/30/20 17:07 99 H 134/89 12/30/20 16:52 88 139/85 12/30/20 16:37 82 131/85 12/30/20 16:22 84 132/82 12/30/20 16:07 93 H 147/86 H 12/30/20 15:52 97 H 128/82 12/30/20 15:37 101 H 134/91 12/30/20 15:23 108 H 98 12/30/20 15:22 93 H 130/90 12/30/20 15:20 99 H 125/82 12/30/20 15:18 97 H 99 12/30/20 15:13 93 H 99 12/30/20 15:08 99 H 100 12/30/20 15:03 123 H 100 12/30/20 15:00 112 H 22 146/85 H 12/30/20 14:58 109 H 100 12/30/20 14:55 103 H 140/91 92 12/30/20 14:53 96 H 100 12/30/20 14:49 100 H 124/88 89 L 12/30/20 14:48 105 H 99 12/30/20 14:44 102 H 133/89 12/30/20 14:43 96 H 100 12/30/20 14:39 109 H 135/91 12/30/20 14:38 101 H 100 12/30/20 14:35 85 129/83 12/30/20 14:33 83 99 12/30/20 14:30 18 12/30/20 14:29 88 129/85 12/30/20 14:28 88 99 12/30/20 14:26 94 H 129/88 12/30/20 14:23 91 H 99 12/30/20 14:20 85 131/80 12/30/20 14:18 84 99 12/30/20 14:15 87 133/85 12/30/20 14:13 90 99 12/30/20 14:10 85 130/82 12/30/20 14:08 87 98 12/30/20 14:04 92 H 123/82 12/30/20 14:03 88 99 12/30/20 14:00 18 12/30/20 13:59 78 133/85 12/30/20 13:58 87 98 12/30/20 13:54 83 121/78 12/30/20 13:53 81 99 12/30/20 13:49 79 131/85 12/30/20 13:48 77 99 12/30/20 13:45 18 12/30/20 13:44 81 130/85 12/30/20 13:43 76 99 12/30/20 13:40 76 132/84 12/30/20 13:38 76 99 12/30/20 13:35 74 130/85 12/30/20 13:33 80 99 12/30/20 13:30 78 20 128/81 12/30/20 13:28 80 98 12/30/20 13:25 88 124/83 12/30/20 13:23 91 H 99 12/30/20 13:20 77 122/83 12/30/20 13:18 75 99 12/30/20 13:15 78 18 127/79 12/30/20 13:13 81 99 12/30/20 13:09 81 121/78 12/30/20 13:08 83 99 12/30/20 13:06 80 118/79 12/30/20 13:03 87 99 12/30/20 13:00 36.3 C L 90 18 118/82 12/30/20 12:58 96 H 100 12/30/20 12:56 94 H 115/75 12/30/20 12:53 85 99 12/30/20 12:51 86 115/81 12/30/20 12:48 93 H 100 12/30/20 12:45 20 12/30/20 12:44 100 H 118/84 12/30/20 12:43 97 H 100 12/30/20 12:39 99 H 114/79 12/30/20 12:38 97 H 100 12/30/20 12:34 85 117/82 12/30/20 12:33 81 100 12/30/20 12:30 94 H 18 115/80 12/30/20 12:28 92 H 100 12/30/20 12:26 82 117/73 12/30/20 12:23 92 H 100 12/30/20 12:20 84 117/77 12/30/20 12:18 88 99 12/30/20 12:15 81 18 116/77 12/30/20 12:13 96 H 100 12/30/20 12:11 78 118/76 12/30/20 12:08 88 100 12/30/20 12:04 81 116/76 12/30/20 12:03 89 99 12/30/20 12:00 90 20 112/73 12/30/20 11:58 96 H 100 12/30/20 11:55 36.4 C L 88 20 110/72 12/30/20 11:53 94 H 100 12/30/20 11:50 18 12/30/20 11:49 93 H 121/77 12/30/20 11:48 92 H 100 12/30/20 11:47 91 H 124/79 12/30/20 11:45 94 H 126/82 12/30/20 11:43 92 H 125/81 100 12/30/20 11:41 92 H 130/92 12/30/20 11:40 18 12/30/20 11:39 84 134/92 12/30/20 11:38 82 100 12/30/20 11:37 98 H 137/90 12/30/20 11:33 91 H 100 12/30/20 11:28 100 H 100 12/30/20 11:23 98 H 100 12/30/20 11:18 83 100 12/30/20 11:13 82 100 12/30/20 10:00 36.4 C L 12/30/20 09:58 86 124/86 Transfer of Care Handoff Completed per policy Notes Mental Status: alert / awake / arousable and participated in evaluation Patient Amnestic to Procedure: Yes Nausea / Vomiting: adequately controlled Pain: adequately controlled Airway Patency, RR, SpO2: stable & adequate BP & HR: stable & adequate Hydration State: stable & adequate Neuraxial Anesthesia: was administered and sensory block is resolving Anesthetic Complications: no major complications apparent
[2020-12-30] MEDS: DOCUSATE SODIUM 100 MG CAP PO SCH (20:55)
[2020-12-31] MEDS: IBUPROFEN 600 MG TAB PO PRN ×2 (03:34→08:14)
[2020-12-31] MEDS ORDERED: LEVOTHYROXINE SODIUM 125 MCG TABLET PO SCH (06:30)
--- NOTE | 2020-12-31 06:33 | Obstetrical Progress Note ---
Date of Service December 31, 2020 Assessment & Plan (1) Chlamydia infection affecting : Neg at 36 weeks Present on Admission?: No (2) Hypothyroid in , antepartum: Check TFTs Q4wks per race steward (3) : s/p day 1 doing well -vital signs reviewed and wnl (Tmax at 36.8) -blood type: O positive, GBS-, Rubella immune, bottle -Pt doing well clinically, wants to consider d/c home today, pp instructions reviewed -encourage ambulation, monitor and control pain with motrin prn, resume regular diet, monitor lochia Admission and Anticipated Discharge Date Admission Date: December 30, 2020 Supervising Physician Co-Signing Physician Notes Resident Physician Supervision Note: I was present with Dr. Rodriguez during the history and exam. I discussed the case with the resident and agree with the findings and plan as documented in the note. Any exceptions or clarifications are listed here: stable. doing well. bottle feeding, wants to consider d/c home today. instructions reviewed, f/u 6wks pp. Documented By: Lillie Padilla MD, FACOG Subjective Marjorie Charles is a 25 yeare old who is s/p day 1 on 12/30/20. She is doing well this morning. She reports ambulating to and from the bathroom and the halls, and has voided and had a BM without difficulty. She denies any pain. She plan to bottle feed her . ROS negative for fever/chills, SOB, cough, wheezing, ches pain, palpitations, breast pain or discharge or headache. Physical Exam Physical Exam: General: Alert, oriented. No acute distress. Cardiac: Regular rate and rhythm, no murmurs/rubs/gallops. Respiratory: Clear to auscultation bilaterally a/p, no wheezes/rales/rhonchi. No increased work of breathing. Symmetrical chest rise. No respiratory distress. Abdomen: Soft, nontender, nondistended. Bowel sounds present. Uterus: Uterine fundus firm, palpable at the umbilicus. Lower Extremities: No lower extremity edema or swelling. No deep calf pain. Gi's negative bilaterally.. Results & Data ([facility]) Vital Signs (Past 12 Hours) Vital Signs Temp Pulse Resp BP 12/31/20 04:00 36.8 C 75 18 115/73 12/30/20 23:25 36.8 C 85 18 141/94 H 12/30/20 19:15 36.8 C 89 18 131/82
[2020-12-31] MEDS ORDERED: FERROUS SULFATE 325 MG TAB PO SCH (08:00)
[2020-12-31] MEDS ORDERED: PRENATAL VITAMIN 1 TAB PO SCH (08:00)
[2020-12-31] MEDS: DOCUSATE SODIUM 100 MG CAP PO SCH (08:14)
== END 2020-12-31 15:45 | disposition home or self-care (01) | DRG 807 ==
LOC: OPB 09:54 → 4S1 09:55 → 4S2 19:06

== ENCOUNTER 2022-05-19 08:18 | Inpatient (IN) ==
[2022-05-19] MEDS ORDERED: LIDOCAINE 1% LOCAL 20 ML VIAL INFIL PRN (08:29)
[2022-05-19] MEDS ORDERED: OXYTOCIN 30 UNITS/500 ML BAG IV PRN ×3 (08:29→18:15)
[2022-05-19] MEDS ORDERED: PENICILLIN G POTASSIUM 6 MU in DEXTROSE 5% 250 ML IV STA (08:43)
[2022-05-19] MEDS: LACTATED RINGER'S 1,000 ML IV PRN ×3 (09:05→13:34)
[2022-05-19 09:23] LABS: Hematocrit (blood only) 33.9 % (34.1-44.9); Hemoglobin 11.3 g/dl (12.0-16.0); Mean Corpuscular Hemoglobin 28.8 pg (25.0-34.0); Mean Corpuscular Hgb Conc 33.3 g/dL (32.0-36.0); Mean Corpuscular Volume 86.3 fL (80.0-100.0); Mean Platelet Volume 10.9 fL (9.4-12.3); Platelet Count 279 K/uL (130-400); RDW Coefficient of Variation 15.5 % (11.5-14.5); RDW Standard Deviation 48.9 fL (36.4-46.3); Red Blood Count 3.93 M/uL (3.93-5.22); White Blood Count 10.74 K/ul (4.8-10.8)
[2022-05-19] MEDS: PENICILLIN G POTASSIUM 3 MU in DEXTROSE 5% 100 ML IV PRN ×2 (12:40→16:36)
[2022-05-19] MEDS ORDERED: fentaNYL citrate 100 MCG/2 ML VIAL ONE (12:47)
[2022-05-19] MEDS ORDERED: ePHEDrine sulfate 50 MG/ML AMP ONE (12:47)
[2022-05-19] MEDS ORDERED: LIDOCAINE 2%/EPINEPHRINE 1:200,000 20 ML SDV ONE (12:48)
[2022-05-19] MEDS ORDERED: SODIUM CHLORIDE 0.9% INJ 10 ML VIAL ONE (12:48)
[2022-05-19] MEDS ORDERED: fentaNYL 2MCG/ML ROPIVACAINE 1.25MG/ML 100 ML BAG EPI ONE (12:48)
[2022-05-19] MEDS ORDERED: BUPIVACAINE 0.25% 30 ML VIAL ONE (12:48)
--- NOTE | 2022-05-19 13:03 | History & Physical Report ---
Date of Service May 19, 2022 Assessment & Plan (1) IUGR (intrauterine growth restriction) affecting care of mother: Plan: Jackelin is a 26-year-old 39 weeks 0 days gestational age presents for induction of labor secondary to IUGR. 1. Fetus: Cat 1 2. Labor: Pitocin. Will AROM when able 3. GBS positive: PCN 4. Vitals: WNL (2) Hypothyroid in , antepartum: (3) Group B streptococcal carriage complicating : (4) Term : Admission and Anticipated Discharge Date Admission Date: May 19, 2022 History of Present Illness Primary Care Provider: Christopher Cardenas DO Jackelin is a 26-year-old 001 presents for induction of labor at 39 weeks 0 days gestational age for history of IUGR. complicated by: Hypothyroid-hx thyroid cancer with thyroidectomy *Check TFTs Q4wks Needs PAP in JANUARY (02/02/22) *Pap smear cytology normal Rubella equivocal-needs rubella pp Low-lying placenta seen at anatomy - Repeat 32w - RESOLVED IUGR *Twice weekly NST/DVP@Dx *Weeklyl doppler@Dx *Growth US Q4wk @Dx *Deliver 38-39wks (3rd-10%)--scheduled 05/19 with [facility] *Deliver 37wks (less than 3rd%) GBS Positive *Treat in labor OB Labs: Blood Type O Positive 10/14/21 Antibody Screen NEGATIVE 10/14/21 Hemoglobin 10.7 g/dl (12.0-16.0) L 03/02/22 Hematocrit 32.5 % (34.1-44.9) L 03/02/22 Mean Corpuscular Volume 88.0 fL (80-100) 12/11/21 Platelet Count 416 K/uL (130-400) H 12/11/21 Rubella IgG Antibody Equivocal (Immune) L 10/14/21 Rapid Plasma Reagin Nonreactive (Nonreactive) 10/14/21 Hepatitis B Surface Antigen Neg (Neg) 05/21/20 Hepatitis B Surface Antigen. NON-REACTIVE (NON-REACTIVE) 10/14/21 Hepatitis C Antibody (EIA) NON-REACTIVE (NON-REACTIVE) 10/14/21 HIV (1&2) Ab and P24 Ag, 4th Gener Neg (Neg) 05/21/20 HIV (1&2) Ag and Ab Confirmation NON-REACTIVE (NON-REACTIVE) 10/14/21 Glucose 1 Hour 50 gm Load 104 mg/dl (70-130) 03/02/22 OB Optional Labs: Chlamydia trachomatis RNA NOT DETECTED (NOT DETECTED) 10/14/21 Neisseria gonorrhoeae RNA NOT DETECTED (NOT DETECTED) 10/14/21 Thyroid Stimulating Hormone (TSH) 0.352 uIu/ml (0.300-4.500) 04/27/22 Labs Reviewed: Declines cf/sma--mln gbs positive. low risk panorama--akh Allergies Allergy/AdvReac Type Severity Reaction Status Date / Time thyrotropin Allergy Mild RASH Verified 05/18/22 15:09 Home Medications Medication Instructions Recorded Confirmed Type levothyroxine 125 mcg tablet 125 mcg PO DAILY #90 tabs 04/30/22 05/19/22 Rx ferrous sulfate 325 mg (65 mg 325 mg PO Q OTHER DAY 05/15/22 05/19/22 History iron) tablet (iron) prenat.vits,mary,[id number] 1 tab PO DAILY 05/15/22 05/19/22 History Patient History Medical History Chlamydia History of anxiety History of thyroid cancer Hurthle cell carcinoma Hx of duodenal ulcer Hypothyroidism, postablative Surgical History H/O total thyroidectomy 12/14/2016 History of colonoscopy 12/12/2012 History of esophagogastroduodenoscopy (EGD) [place] teeth removed Family History Grandmother Breast cancer Mother Lung cancer metastatic to brain Asthma Gallbladder disease Sister Seizure Asthma Gallbladder disease Grandfather (Maternal) Family history of diabetes mellitus Other Cancer No family history of adverse response to anesthesia Denies family history of Ovarian cancer Prostate cancer Colorectal cancer Social History Smoking Status: Never smoker Second Hand Exposure: No; Do You Dip or Chew Tobacco: No; Tobacco Cessation Education Requested by Patient: No Hx Alcohol Use: No Hx Substance Use: No Preferred Language: Argentine Communication Ability: Effective Visual Impairment: Limited Hearing Ability: Normal Chicle Grinder Feeder Required: No Beliefs That Will Affect Care: None marital status: Single marital status details: fob Andres Wharton (26) [phone] Current Living Situation: Family Current Living Situation Comment: Lives with father of baby, son, and 2 dogs, and a sister current occupational status: unemployed 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 Other Information That Helps Us Care for You: No Feels Safe at Home: Yes Safety Concerns: Feels Safe At This Time caffeine: No Dental Care, Regularly: Yes Physical Activity Frequency: 5-6 Times per Week Seatbelt Use: always Sunscreen Use: No Gender Identity: Female Assistive Devices: None Physical Exam Genitourinary: OB Exam Abdomen: + vertex Manual OB Exam: + cervical dilation (3-5), + cervical effacement (90) and + station (-2) OB Exam Monitor Tracing: + external FHT monitor used, + external uterine monitor used, + category I and + normal FHT variability Results & Data ([facility]) Vital Signs (Past 12 Hours) Vital Signs Temp Pulse Resp BP 05/19/22 12:52 102 H 129/86 05/19/22 12:38 93 H 123/83 05/19/22 12:22 96 H 119/84 05/19/22 12:08 100 H 116/81 05/19/22 11:57 89 130/82 05/19/22 11:30 16 05/19/22 11:30 36.8 C 16 05/19/22 11:38 90 125/83 05/19/22 11:22 90 133/90 05/19/22 11:07 102 H 135/86 05/19/22 11:03 94 H 132/84 05/19/22 10:22 93 H 119/83 05/19/22 10:07 97 H 113/75 05/19/22 08:25 116 H 107/72 05/19/22 08:38 37.4 C 116 H 16 107/72 Coding Level of Care Code None Diagnoses IUGR (intrauterine growth restriction) affecting care of mother O36.5990 Hypothyroid in , antepartum O99.280; E03.9 Group B streptococcal carriage complicating O99.820 Term Z34.90
[2022-05-19] MEDS ORDERED: NALOXONE HCL 1 MG in SODIUM CHLORIDE 0.9% 1000ML 1,000 ML IV PRN (13:47)
[2022-05-19] MEDS ORDERED: ONDANSETRON INJ 2 MG/ML 2 ML VIAL IV PRN (13:47)
[2022-05-19] MEDS ORDERED: NALOXONE HCL 0.4 MG/1 ML VIAL/CARP IV PRN (13:47)
[2022-05-19] MEDS ORDERED: fentaNYL 2MCG/ML ROPIVACAINE 1.25MG/ML 100 ML BAG EPI PRN (13:47)
[2022-05-19] MEDS ORDERED: diphenhydrAMINE 50 MG/ML VIAL IV PRN (13:47)
[2022-05-19] MEDS ORDERED: NALBUPHINE HCL INJ 10 MG/ML AMP IV PRN (13:47)
[2022-05-19] MEDS ORDERED: ePHEDrine sulfate 50 MG/ML AMP IV PRN (13:47)
--- NOTE | 2022-05-19 13:49 | Anesthesiology Consultation ---
Date of Service May 19, 2022 Assessment & Plan Chart Review Chart Review: Acceptable Risk for Surgery Consults Requested none ASA ASA2 Proposed Anesthesia Anesthesia Type: Labor Epidural and CSE Risk / Benefits Reviewed With: PT / POA / Parent / Guardian, Accepts Plan and Informed Consent Obtained History Height/Weight Height: 5 ft 4 in Weight: 68.039 kg Allergies Allergy/AdvReac Type Severity Reaction Status Date / Time thyrotropin Allergy Mild RASH Verified 05/18/22 15:09 Medications Home Medications Medication Instructions Recorded Confirmed Last Taken levothyroxine 125 mcg tablet 125 mcg PO DAILY #90 tabs 04/30/22 05/19/22 05/19/22 06:00 ferrous sulfate 325 mg (65 mg 325 mg PO Q OTHER DAY 05/15/22 05/19/22 05/18/22 21:00 iron) tablet (iron) prenat.vits,mary,[id number] 1 tab PO DAILY 05/15/22 05/19/22 05/18/22 21:00 Active Medications Generic Name Dose Route Start Last Admin Trade Name Denise PRN Reason Stop Dose Admin Oxytocin 30 units in 500 mls @ 14 mls/hr 05/19/22 08:29 05/19/22 13:15 Pitocin IV 05/21/22 08:28 0.84 units/hr .Q24H PRN 14 mls/hr Labor Induction/Augmentation Titration Protocol 0.84 UNITS/HR Lactated Ringer's 1,000 mls @ 125 mls/hr 05/19/22 08:29 05/19/22 13:34 Lr IV 05/21/22 08:28 999 mls/hr .Q8H PRN Administration L&D Protocol Protocol Penicillin G Potassium 3 mu/ 106 mls @ 100 mls/hr 05/19/22 11:29 05/19/22 12:40 Dextrose IV 05/29/22 11:28 100 mls/hr Q4H PRN Administration GBS(+) Until Delivery NPO Date Last Intake of Fluids: 05/19/22 Time Last Intake of Fluids: 13:00 Date Last Intake of Solids: 05/19/22 Time Last Intake of Solids: 07:00 Past Medical History Medical History Chlamydia History of anxiety History of thyroid cancer Hurthle cell carcinoma Hx of duodenal ulcer Hypothyroidism, postablative Exercise / Class Metabolic Activity II 4-5 Yardwork/Stairs/Walk up hill Past Family History Family History Grandmother Breast cancer Mother Lung cancer metastatic to brain Asthma Gallbladder disease Sister Seizure Asthma Gallbladder disease Grandfather (Maternal) Family history of diabetes mellitus Other Cancer No family history of adverse response to anesthesia Denies family history of Ovarian cancer Prostate cancer Colorectal cancer Past Surgical History Surgical History H/O total thyroidectomy 12/14/2016 History of colonoscopy 12/12/2012 History of esophagogastroduodenoscopy (EGD) [place] teeth removed Past Anesthesia History No Hx of Anesthesia Complications and No Family Hx of Anesthesia Complications History of PONV No Hx of PONV and No Hx of Motion Sickness Social History Smoking Status: Never smoker Do You Dip or Chew Tobacco: No Hx Alcohol Use: No Hx Substance Use: No substance use type: does not use Review of Systems no chest pain or sob Physical Exam Vital Signs Last Vital Signs Temp 36.8 C 05/19/22 13:10 Pulse 94 H 05/19/22 13:43 Resp 16 05/19/22 13:10 BP 123/80 05/19/22 13:37 Pulse Ox 99 05/19/22 13:43 ENMT Mouth: no TMJ abnormality Thyromental Distance: > or= 3.5 Finger Breadths Mallampati Class: II Neck normal visual inspection Respiratory normal respiratory effort Auscultation: lungs clear to auscultation bilaterally Cardiovascular Rate/Rhythm: regular rate and regular rhythm Musculoskeletal Spine: normal cervical ROM Neurologic moves all extremities Psychiatric Orientation: alert and oriented x 3 Testing Laboratory Results 05/19/22 09:06
--- NOTE | 2022-05-19 14:58 | Labor Progress Brief Note ---
Date of Service May 19, 2022 Subjective Reason For Note: Routine Evaluation Assessment & Plan (1) IUGR (intrauterine growth restriction) affecting care of mother: Plan: Jackelin is a 26-year-old 39 weeks 0 days gestational age presents for induction of labor secondary to IUGR. 1. Fetus: Cat 1 2. Labor: Pitocin. AROM clr 3. GBS positive: PCN 4. Vitals: WNL (2) Hypothyroid in , antepartum: (3) Group B streptococcal carriage complicating : (4) Term : Admission and Anticipated Discharge Date Admission Date: May 19, 2022 Physical Exam Genitourinary: Manual OB Exam: + cervical dilation (4.5), + cervical effacement 70%, + station -2 and + amniotic fluid clear OB Exam Monitor Tracing: + external FHT monitor used, + external uterine monitor used, + category I and + normal FHT variability [facility] & Data ([facility]) Vital Signs (Past 12 Hours) Vital Signs Temp Pulse Resp BP Pulse Ox 05/19/22 14:53 87 99 05/19/22 14:48 88 99 05/19/22 14:43 89 97 05/19/22 14:38 90 98 05/19/22 14:39 93 H 132/77 05/19/22 14:33 93 H 98 05/19/22 14:28 88 99 05/19/22 14:23 93 H 98 05/19/22 14:24 92 H 106/68 05/19/22 14:18 87 97 05/19/22 14:13 96 H 98 05/19/22 14:08 93 H 97 05/19/22 14:07 95 H 110/80 05/19/22 14:05 85 106/72 05/19/22 14:03 85 106/71 98 05/19/22 14:01 83 111/68 05/19/22 14:00 85 122/72 05/19/22 13:58 96 H 98 05/19/22 13:57 101 H 131/90 05/19/22 13:53 101 H 134/88 100 05/19/22 13:52 93 H 136/86 05/19/22 13:49 94 H 121/83 05/19/22 13:48 94 H 99 05/19/22 13:43 94 H 99 05/19/22 13:38 95 H 100 05/19/22 13:37 94 H 123/80 05/19/22 13:33 98 H 99 05/19/22 13:28 89 100 05/19/22 13:23 89 128/84 100 05/19/22 13:18 91 H 100 05/19/22 13:10 16 05/19/22 13:10 36.8 C 16 05/19/22 13:13 94 H 100 05/19/22 13:08 100 05/19/22 13:08 96 H 05/19/22 13:08 86 129/87 05/19/22 13:03 89 100 05/19/22 12:52 102 H 129/86 05/19/22 12:38 93 H 123/83 05/19/22 12:22 96 H 119/84 05/19/22 12:08 100 H 116/81 05/19/22 11:57 89 130/82 05/19/22 11:30 16 05/19/22 11:30 36.8 C 16 05/19/22 11:38 90 125/83 05/19/22 11:22 90 133/90 05/19/22 11:07 102 H 135/86 05/19/22 11:03 94 H 132/84 05/19/22 10:22 93 H 119/83 05/19/22 10:07 97 H 113/75 05/19/22 08:25 116 H 107/72 05/19/22 08:38 37.4 C 116 H 16 107/72 Coding Level of Care Code None Diagnoses IUGR (intrauterine growth restriction) affecting care of mother O36.5990 Hypothyroid in , antepartum O99.280; E03.9 Group B streptococcal carriage complicating O99.820 Term Z34.90
[2022-05-19] MEDS ORDERED: HYDROCORTISONE ACETATE 25 MG SUPP PR PRN (18:15)
[2022-05-19] MEDS ORDERED: DIPHTHERIA/TETANUS/PERTUSSIS 0.5 ML SYR/VIAL IM ONE (18:15)
[2022-05-19] MEDS ORDERED: BENZOCAINE 20% AER SPR 82.5 GM CAN EXT PRN (18:15)
[2022-05-19] MEDS ORDERED: bisacodyL 10 MG SUPP PR PRN (18:15)
--- NOTE | 2022-05-19 18:51 | Anesthesia Procedure Note ---
Date of Service May 19, 2022 Anesthesia Post Epidural Note Vital Signs Vital Signs: Temp Pulse Resp BP Pulse Ox 36.6 C 83 16 122/82 99 05/19/22 16:38 05/19/22 18:42 05/19/22 16:38 05/19/22 18:42 05/19/22 17:38 Notes Mental Status: alert / awake / arousable and participated in evaluation Nausea / Vomiting: adequately controlled Pain: adequately controlled Airway Patency, RR, SpO2: stable & adequate BP & HR: stable & adequate Hydration State: stable & adequate Neuraxial Anesthesia: was administered and sensory block is resolving Anesthetic Complications: no major complications apparent and Pt Satisfied with anesthetic care Epidural: Removed without complications and With tip intact
[2022-05-19] MEDS: DOCUSATE SODIUM 100 MG CAP PO SCH (21:19)
[2022-05-19] MEDS: IBUPROFEN 600 MG TAB PO PRN (23:20)
[2022-05-20] MEDS: ACETAMINOPHEN 325 MG TAB PO PRN ×3 (03:40→20:45)
[2022-05-20] MEDS: IBUPROFEN 600 MG TAB PO PRN ×4 (03:40→20:45)
--- NOTE | 2022-05-20 07:22 | Obstetrical Progress Note ---
Date of Service <Atif Knapp - Last Filed: 05/20/22 08:57> May 20, 2022 Assessment & Plan <Atif Knapp - Last Filed: 05/20/22 08:57> (1) Status post vaginal delivery: - Feels well today. Eating well, voiding well, ambulating well. - Pain well controlled with ibuprofen 600mg Q4H PRN - Routine care -- OOB, ambulation, diet progression as tolerated - After discharge will have 6 week follow-up with Dr. Flores (2) Hypothyroidism, postablative: - Resume home levothyroxine at 125 mcg. - Patient had her dose of meds increased for her . She should f/u with her software trainer to discuss continue management of her hypothyroidism. <Juan Antonio Flores MD - Last Filed: 05/21/22 14:40> (1) Status post vaginal delivery: (2) Hypothyroidism, postablative: Subjective <Atif KesslerEmma RashmiDO del - Last Filed: 05/20/22 08:57> Patient is a 26 y/o female who is now PPD # 1 following spontaneous vaginal delivery + IOL at 39 weeks. Reports feeling well overall this morning. Mild abdominal cramping & 2/10 pain well managed on analgesics. Voiding well. Tolerating meals overnight and able to ambulate some. Able to pass gas and has not had a bowel movement. Has some persistent lochia with some improvement this morning. Currently breast feeding. Review of Systems Denies fever, chills, sweats Denies shortness of breath, difficulty breathing, chest pain, palpitations, chest pressure. Denies breast pain. Denies dysuria. Denies headache or changes in vision. Physical Exam <Atif Caraballodel - Last Filed: 05/20/22 08:57> General: Alert, oriented. No acute distress. Cardiac: Regular rate and rhythm, no murmurs/rubs/gallops. Respiratory: Clear to auscultation bilaterally a/p, no wheezes/rales/rhonchi. No increased work of breathing. Symmetrical chest rise. No respiratory distress. Abdomen: Soft, nontender, nondistended. Bowel sounds present. Uterus: Uterine fundus firm, palpable 2 cm below umbilicus. Lower Extremities: No lower extremity edema or swelling. No deep calf pain. Khushi n's negative bilaterally. Results & Data ([facility]) <Atif Knapp DO - Last Filed: 05/20/22 08:57> Vital Signs (Past 12 Hours) Vital Signs Temp Pulse Pulse Resp BP BP Pulse Ox 05/20/22 04:30 36.5 C 67 16 114/78 05/19/22 23:00 36.4 C L 77 16 127/76 96 05/19/22 21:00 36.6 C 92 H 16 113/75 98 05/19/22 19:50 101 H 113/77 05/19/22 19:38 108 H 116/79 05/19/22 19:23 93 H 115/78 O2 Del Method 05/20/22 04:30 Room Air 05/19/22 23:00 Room Air 05/19/22 21:00 Room Air 05/19/22 19:50 05/19/22 19:38 05/19/22 19:23 <Juan Antonio Flores MD - Last Filed: 05/21/22 14:40> Co-Signing Physician Notes Patient seen and evaluated with resident and agree with the findings and plan. Routine care. Resident Activity Tracking <Atif Knapp DO - Last Filed: 05/20/22 08:57> Resident Involvement: Resident Care Provided Care Provided: OB Delivery
[2022-05-20 07:40] LABS: Hematocrit (blood only) 34.3 % (34.1-44.9); Hemoglobin 11.4 g/dl (12.0-16.0)
[2022-05-20] MEDS: DOCUSATE SODIUM 100 MG CAP PO SCH ×2 (08:10→20:45)
[2022-05-20] MEDS: FERROUS SULFATE 325 MG TAB PO SCH (08:10)
[2022-05-20] MEDS: PRENATAL VITAMIN 1 TAB PO SCH (08:10)
[2022-05-20] MEDS: LEVOTHYROXINE SODIUM 125 MCG TABLET PO SCH (10:30)
[2022-05-20] MEDS ORDERED: bisacodyL 5 MG TABEC PO SCH (20:00)
[2022-05-21] MEDS: IBUPROFEN 600 MG TAB PO PRN (03:03)
[2022-05-21] MEDS: ACETAMINOPHEN 325 MG TAB PO PRN (03:03)
[2022-05-21] MEDS: LEVOTHYROXINE SODIUM 125 MCG TABLET PO SCH (06:22)
--- NOTE | 2022-05-21 07:56 | Obstetrical Progress Note ---
Date of Service <Atif Knapp - Last Filed: 05/21/22 07:56> May 21, 2022 Assessment & Plan <Atif Knapp - Last Filed: 05/21/22 07:56> (1) Status post vaginal delivery: - Feels well today. Eating well, voiding well, ambulating well. - Pain well controlled with ibuprofen 600mg Q4H PRN - Routine care -- OOB, ambulation, diet progression as tolerated - After discharge will have 6 week follow-up with Dr. Flores - Will D/C today (2) Hypothyroidism, postablative: - Resumed home levothyroxine at 125 mcg. - Patient had her dose of meds increased for her . She should f/u with her fabric worker supervisor to discuss continue management of her hypothyroidism. <Katharine Mora MD, FACOG - Last Filed: 05/21/22 08:05> (1) Status post vaginal delivery: (2) Hypothyroidism, postablative: Subjective <Atif Knapp - Last Filed: 05/21/22 07:56> Patient is a 26 y/o female who is now PPD # 2 following spontaneous vaginal delivery + IOL at 39 weeks. Reports feeling well overall this morning. Mild abdominal cramping & 2/10 pain well managed on analgesics. Voiding well. Tolerating meals overnight and able to ambulate some. Able to pass gas and has not had a bowel movement. Has some persistent lochia with some improvement this morning. Currently breast feeding. Review of Systems Denies fever, chills, sweats Denies shortness of breath, difficulty breathing, chest pain, palpitations, chest pressure. Denies breast pain. Denies dysuria. Denies headache or changes in vision. Physical Exam <Atif Knapp - Last Filed: 05/21/22 07:56> General: Alert, oriented. No acute distress. Cardiac: Regular rate and rhythm, no murmurs/rubs/gallops. Respiratory: Clear to auscultation bilaterally a/p, no wheezes/rales/rhonchi. No increased work of breathing. Symmetrical chest rise. No respiratory distress. Abdomen: Soft, nontender, nondistended. Bowel sounds present. Uterus: Uterine fundus firm, palpable 3 cm below umbilicus. Lower Extremities: No lower extremity edema or swelling. No deep calf pain. Gi's negative bilaterally. Results & Data ([facility]) <Atif Knapp DO - Last Filed: 05/21/22 07:56> Vital Signs (Past 12 Hours) Vital Signs Temp Pulse Resp BP 05/20/22 23:30 36.5 C 81 18 121/79 05/20/22 20:30 36.7 C 76 18 131/87 <Katharine Mora MD, FACOG - Last Filed: 05/21/22 08:05> Co-Signing Physician Notes Resident Physician Supervision Note: I interviewed and examined the patient. Discussed with Dr. Knapp and agree with findings and plan as documented in the note. Any exceptions or clarifications are listed here: Doing well. PLan d/c. Instructions given. Documented By: Katharine Mora MD, FACOG Resident Activity Tracking <Atif Knapp DO - Last Filed: 05/21/22 07:56> Resident Involvement: Resident Care Provided Care Provided: OB Delivery
[2022-05-21] MEDS: FERROUS SULFATE 325 MG TAB PO SCH (08:58)
[2022-05-21] MEDS: DOCUSATE SODIUM 100 MG CAP PO SCH (08:58)
[2022-05-21] MEDS: PRENATAL VITAMIN 1 TAB PO SCH (08:58)
== END 2022-05-21 11:30 | disposition home or self-care (01) | DRG 807 ==
LOC: 4S1 08:18 → 4E2 20:25

== ENCOUNTER 2025-03-05 17:46 | Inpatient (IN) ==
[2025-03-05] MEDS: LACTATED RINGER'S 1,000 ML IV PRN (18:34)
[2025-03-05] MEDS ORDERED: LIDOCAINE 1% LOCAL 20 ML VIAL INFIL PRN (18:35)
--- NOTE | 2025-03-05 18:42 | Labor Progress Brief Note ---
Date of Service March 05, 2025 Subjective Patient called in with contractions Q5min, bloody show, and reporting that she was 5-6cm in the office today when her membranes were stripped. Was advised to present to L&D. On arrival, requesting epidural. Assessment & Plan (1) Normal labor: Plan: Admit, epidural, anticipate . Physical Exam Genitourinary: 100/0 Intact membranes, vertex present ation FHT Cat 1 [place] Q2-3m Coding Level of Care Code None Diagnoses Normal labor O80; Z37.9
[2025-03-05 19:37] LABS: Hematocrit (blood only) 32.7 % (37.0-47.0); Hemoglobin 10.8 g/dl (12.0-16.0); Mean Corpuscular Hemoglobin 28.7 pg (25.0-34.0); Mean Corpuscular Volume 87.0 fL (80.0-100.0); Platelet Count 230 K/uL (130-400); RDW Standard Deviation 47.8 fL (36.4-46.3); Red Blood Count 3.76 M/uL (4.20-5.40); White Blood Count 11.92 K/ul (4.8-10.8)
[2025-03-05] MEDS ORDERED: SODIUM CHLORIDE 0.9% PF INJ 10 ML VIAL EPI PRN (19:40)
[2025-03-05] MEDS ORDERED: NALOXONE HCL 1 MG in SODIUM CHLORIDE 0.9% 1,000 ML IV PRN (19:40)
[2025-03-05] MEDS ORDERED: fentANYL 2 MCG/ML BUPIVacaine 0.125%-NSS 100ML BAG EPI PRN (19:40)
[2025-03-05] MEDS ORDERED: NALBUPHINE HCL INJ 10 MG/ML AMP IV PRN (19:40)
[2025-03-05] MEDS ORDERED: NALOXONE HCL 0.4 MG/1 ML VIAL/CARP IV PRN (19:40)
[2025-03-05] MEDS ORDERED: ROPIVACAINE 0.5% PF 5 MG/ML 20 ML VIAL EPI PRN (19:40)
[2025-03-05] MEDS ORDERED: BUPIVACAINE 0.25% PF 30 ML VIAL EPI PRN (19:40)
[2025-03-05] MEDS ORDERED: diphenhydrAMINE 50 MG/ML VIAL IV PRN (19:40)
[2025-03-05] MEDS ORDERED: LIDOCAINE 2% MPF LOCAL 5 ML VIAL EPI PRN (19:40)
--- NOTE | 2025-03-05 19:40 | Anesthesiology Consultation ---
Date of Service March 05, 2025 Assessment & Plan Chart Review Chart Review: Acceptable Risk for Labor Epidural Consults Requested none History Height/Weight Height: 5 ft 4 in Weight: 67.132 kg Allergies Allergy/AdvReac Type Severity Reaction Status Date / Time thyrotropin Allergy Mild RASH Verified 03/05/25 08:36 Medications Home Medications Medication Instructions Recorded Confirmed Last Taken breast pump #1 ea 09/18/24 03/05/25 Unknown ferrous sulfate [Iron (ferrous 65 mg PO DAILY 12/26/24 03/05/25 03/02/25 08:00 sulfate)] levothyroxine 125 mcg tablet 125 mcg PO DAILY #30 tabs 01/16/25 03/05/25 03/05/25 07:00 acetaminophen 2 tabs PO PRN Headache 03/01/25 03/05/25 Unknown Active Medications Generic Name Dose Route Start Last Admin Trade Name Freq PRN Reason Stop Dose Admin Lactated Ringer's 1,000 mls @ 125 mls/hr 03/05/25 18:35 03/05/25 18:34 Lr IV 03/07/25 18:34 999 mls/hr .Q8H PRN Administration L&D Protocol Protocol Past Medical History Medical History Varicella vaccination Pineal gland cyst Migraine with aura Vaginitis Vitamin D deficiency Anxiety IUGR (intrauterine growth restriction) affecting care of mother Chlamydia Hurthle cell carcinoma GERD (gastroesophageal reflux disease) History of anxiety Hx of duodenal ulcer History of thyroid cancer Syncope PUD (peptic ulcer disease) Headache Past Family History Family History Grandmother Breast cancer Mother Lung cancer metastatic to brain Asthma Gallbladder disease Sister Seizure Asthma Gallbladder disease Grandfather (Maternal) Family history of diabetes mellitus Other Cancer No family history of adverse response to anesthesia Denies family history of Ovarian cancer Prostate cancer Colorectal cancer Past Surgical History Surgical History Status post vaginal delivery History of esophagogastroduodenoscopy (EGD) [place] teeth removed History of colonoscopy H/O total thyroidectomy Social History Smoking Status: Never smoker Do You Dip or Chew Tobacco: No Hx Alcohol Use: No Hx Substance Use: No substance use type: does not use Physical Exam Vital Signs Last Vital Signs Temp 36.7 C 03/05/25 19:00 Pulse 83 03/05/25 19:38 Resp 16 03/05/25 19:00 BP 142/94 H 03/05/25 19:06 Pulse Ox 92 03/05/25 19:38 O2 Del Method Room Air 03/05/25 18:41 Testing Laboratory Results 03/05/25 19:10
[2025-03-05] MEDS: fentANYL 2 MCG/ML BUPIVacaine 0.125%-NSS 100ML BAG ONE (19:57)
[2025-03-05] MEDS: LIDOCAINE 2%/EPINEPHRINE 1:200,000 20 ML PF ONE (19:57)
[2025-03-05] MEDS: OXYTOCIN 30 UNITS/NSS 30 UNITS/500 ML BAG IV PRN (22:45)
--- NOTE | 2025-03-05 22:50 | Delivery Summary ---
Vaginal Delivery Summary Date of Service March 05, 2025 Vaginal Delivery Summary DIAGNOSES: 1. Srivastava intrauterine at 40w5d gestation. 2. Spontaneous onset of labor. 3. Group B Streptococcus Neg. PROCEDURE: Spontaneous vaginal delivery without laceration. SURGEON: Christel Lester MD. SOCK KNITTER: None. ESTIMATED BLOOD LOSS: 78 mL. COMPLICATIONS: None. PLACENTA: Spontaneous and intact with a 3-vessel cord. DISPOSITION: Stable to labor and delivery. DESCRIPTION: The patient pushed well and brought the head to in OA position. The infant's head was allowed to deliver with contraction force and no further active pushing, with the perineum protected during this time. There was no nuchal cord. The left shoulder was anterior. The shoulders and body delivered without any difficulty, and the infant was placed on the maternal abdomen. It was vigorous and moving all extremities, and making respiratory efforts. The cord was doubly clamped by the MD and then cut by the FOB. The placenta delivered spontaneously and was noted to be intact and with a 3VC. The cervix, vagina and perineum were examined and were found to be without defect requiring repair. The fundus was firm and lochia minimal immediately after delivery. [facility] [place] Vaginal Delivery Charge Vaginal Delivery Codes: 29702 global code for the antepartum, delivery, and post-
[2025-03-06] MEDS: BUPIVACAINE 0.25% PF 30 ML VIAL ONE (00:35)
[2025-03-06] MEDS: SODIUM CHLORIDE 0.9% PF INJ 10 ML VIAL ONE (00:36)
[2025-03-06] MEDS: BUPIVACAINE 0.25% PF 30 ML VIAL EPI STA (00:36)
[2025-03-06] MEDS: SODIUM CHLORIDE 0.9% PF INJ 10 ML VIAL EPI STA (00:37)
[2025-03-06] MEDS: LIDOCAINE 2%/EPINEPHRINE 1:200,000 20 ML PF EPI STA (00:37)
[2025-03-06] MEDS ORDERED: ACETAMINOPHEN 325 MG TAB PO PRN (01:24)
[2025-03-06] MEDS ORDERED: HYDROCORTISONE ACETATE 25 MG SUPP PR PRN (01:24)
[2025-03-06] MEDS ORDERED: OXYTOCIN 30 UNITS/NSS 30 UNITS/500 ML BAG IV PRN (01:24)
[2025-03-06] MEDS ORDERED: BENZOCAINE 20% SPRY 85 APPLN/85 GM CAN EXT PRN (01:24)
[2025-03-06 02:12] VITALS: RESP 18
--- NOTE | 2025-03-06 05:49 | Obstetrical Progress Note ---
Date of Service March 06, 2025 Assessment & Plan (1) examination following vaginal delivery: (2) Hypothyroid in , antepartum: Plan 29 yo post- day 1 s/p whose was complicated by hypothyroidism Feels well today. Vital signs stable Continue post- care Encourage ambulation and Pain controlled with ibuprofen Hgb stable Discharge home tomorrow, follow up with Dr. Lester in 6 weeks. Admission and Anticipated Discharge Date Admission Date: March 05, 2025 Supervising Physician Co-Signing Physician Notes Resident Physician Supervision Note: I interviewed and examined the patient. Discussed with Dr. Steele and agree with findings and plan as documented in the note. Any exceptions or clarifications are listed here: [ ] Documented By: Christel Lester MD, FACOG Subjective Jackelin Charles is a 29 y/o post- day 1 s/p . complicated by hypothyroidism. Ambulation: ambulating normally Voiding: no voiding problems Passing Gas:: Yes Diet Tolerance:: regular diet Lochia:: Small Feeding Type:: breast Current Pain Level: minimal Resting comfortably this AM in NAD. Denies LANIER, CP, SOB, N/V/D, LE pain/swelling. Physical Exam Physical Exam: General: patient resting comfortably, NAD, non-toxic in appearance, AA&O x 4, answers questions appropriately. Skin: warm, dry, intact HEENT: NC/AT, anicteric sclera, conjunctiva without injection, moist mucus membranes. Heart: +S1/S2, regular, no m/r/g Lungs: equal air entry bilaterally, no rales/rhonchi/wheezes Abd: +BS, soft, NT/ND, uterine fundus firm below umbilicus Ext: warm, no clubbing/cyanosis or edema, Gi's neg. Neuro: nonfocal, patient AA&O x 4, speech intact, no facial droop, moving all extremities on command. Results & Data Vital Signs (Past 12 Hours) Vital Signs Temp Pulse Pulse Resp BP BP Pulse Ox 03/06/25 02:10 36.4 C L 82 18 134/87 03/06/25 01:00 93 H 132/83 03/06/25 00:45 88 120/74 03/06/25 00:30 96 H 127/87 03/06/25 00:15 75 130/84 03/06/25 00:00 80 128/85 03/05/25 23:45 81 130/86 03/05/25 23:30 85 131/89 03/05/25 23:15 89 123/78 03/05/25 23:00 87 125/79 03/05/25 22:55 16 03/05/25 22:46 96 H 98 03/05/25 22:45 91 H 132/89 03/05/25 22:41 94 H 99 03/05/25 22:40 16 03/05/25 22:40 16 03/05/25 22:36 95 H 99 03/05/25 22:31 93 H 125/71 99 03/05/25 22:30 16 03/05/25 22:30 16 03/05/25 22:26 96 H 98 03/05/25 22:21 95 H 97 03/05/25 22:16 87 120/70 98 03/05/25 22:15 92 H 93 03/05/25 22:11 102 H 99 03/05/25 22:06 89 99 03/05/25 22:01 96 H 139/91 99 03/05/25 22:00 16 03/05/25 22:00 16 03/05/25 21:56 90 98 03/05/25 21:51 99 H 98 03/05/25 21:46 96 H 98 03/05/25 21:45 138/83 03/05/25 21:41 98 H 99 03/05/25 21:36 90 99 03/05/25 21:31 95 H 134/87 98 03/05/25 21:30 16 03/05/25 21:30 16 03/05/25 21:26 98 H 98 03/05/25 21:21 95 H 98 03/05/25 21:16 87 98 03/05/25 21:15 36.9 C 91 H 136/85 03/05/25 21:11 107 H 99 03/05/25 21:06 93 H 98 03/05/25 21:01 97 H 99 03/05/25 21:00 16 03/05/25 21:00 16 03/05/25 20:58 99 H 130/85 03/05/25 20:56 98 H 100 03/05/25 20:54 98 H 120/81 09/15/25 20:51 99 H 99 03/05/25 20:47 93 H 119/80 03/05/25 20:46 93 H 100 03/05/25 20:43 95 H 121/78 03/05/25 20:41 93 H 99 03/05/25 20:37 90 124/85 03/05/25 20:36 87 100 03/05/25 20:33 93 H 125/78 03/05/25 20:31 98 H 99 03/05/25 20:30 16 03/05/25 20:30 16 03/05/25 20:27 90 117/77 03/05/25 20:26 92 H 99 03/05/25 20:25 88 123/83 03/05/25 20:23 95 H 131/87 03/05/25 20:21 90 133/92 99 03/05/25 20:20 16 03/05/25 20:20 16 03/05/25 20:19 92 H 127/90 03/05/25 20:18 93 H 93 03/05/25 20:17 83 125/86 03/05/25 20:16 85 98 03/05/25 20:15 88 133/90 03/05/25 20:11 87 99 03/05/25 20:06 98 H 98 03/05/25 20:01 91 H 99 03/05/25 19:56 94 H 97 03/05/25 19:51 95 H 99 03/05/25 19:46 81 99 03/05/25 19:41 86 97 03/05/25 19:38 83 92 03/05/25 19:36 84 97 03/05/25 19:31 80 98 03/05/25 19:30 83 94 03/05/25 19:26 86 99 03/05/25 19:23 85 93 03/05/25 19:21 99 H 100 03/05/25 19:16 80 99 03/05/25 19:11 88 97 03/05/25 19:06 100 03/05/25 19:06 165 H 03/05/25 19:06 86 142/94 H 03/05/25 19:00 16 03/05/25 19:00 36.7 C 16 03/05/25 18:48 85 121/88 03/05/25 18:41 37.0 C 85 20 121/88 O2 Del Method 03/06/25 02:10 Room Air 03/06/25 01:00 03/06/25 00:45 03/06/25 00:30 03/06/25 00:15 03/06/25 00:00 03/05/25 23:45 03/05/25 23:30 03/05/25 23:15 03/05/25 23:00 03/05/25 22:55 03/05/25 22:46 03/05/25 22:45 03/05/25 22:41 03/05/25 22:40 03/05/25 22:40 03/05/25 22:36 03/05/25 22:31 03/05/25 22:30 03/05/25 22:30 03/05/25 22:26 03/05/25 22:21 03/05/25 22:16 03/05/25 22:15 03/05/25 22:11 03/05/25 22:06 03/05/25 22:01 03/05/25 22:00 03/05/25 22:00 03/05/25 21:56 03/05/25 21:51 03/05/25 21:46 03/05/25 21:45 03/05/25 21:41 03/05/25 21:36 03/05/25 21:31 03/05/25 21:30 03/05/25 21:30 03/05/25 21:26 03/05/25 21:21 03/05/25 21:16 03/05/25 21:15 03/05/25 21:11 03/05/25 21:06 03/05/25 21:01 03/05/25 21:00 03/05/25 21:00 03/05/25 20:58 03/05/25 20:56 03/05/25 20:54 03/05/25 20:51 03/05/25 20:47 03/05/25 20:46 03/05/25 20:43 03/05/25 20:41 03/05/25 20:37 03/05/25 20:36 03/05/25 20:33 03/05/25 20:31 03/05/25 20:30 03/05/25 20:30 03/05/25 20:27 03/05/25 20:26 03/05/25 20:25 03/05/25 20:23 03/05/25 20:21 03/05/25 20:20 03/05/25 20:20 03/05/25 20:19 03/05/25 20:18 03/05/25 20:17 03/05/25 20:16 03/05/25 20:15 03/05/25 20:11 03/05/25 20:06 03/05/25 20:01 03/05/25 19:56 03/05/25 19:51 03/05/25 19:46 03/05/25 19:41 03/05/25 19:38 03/05/25 19:36 03/05/25 19:31 03/05/25 19:30 03/05/25 19:26 03/05/25 19:23 03/05/25 19:21 03/05/25 19:16 03/05/25 19:11 03/05/25 19:06 03/05/25 19:06 03/05/25 19:06 03/05/25 19:00 03/05/25 19:00 03/05/25 18:48 03/05/25 18:41 Room Air
[2025-03-06 06:19] LABS: Hematocrit (blood only) 33.1 % (37.0-47.0); Hemoglobin 10.6 g/dl (12.0-16.0); Mean Corpuscular Hemoglobin 28.3 pg (25.0-34.0); Mean Corpuscular Volume 88.3 fL (80.0-100.0); Platelet Count 217 K/uL (130-400); RDW Standard Deviation 48.5 fL (36.4-46.3); Red Blood Count 3.75 M/uL (4.20-5.40); White Blood Count 15.17 K/ul (4.8-10.8)
[2025-03-06] MEDS: LEVOTHYROXINE SODIUM 125 MCG TABLET PO SCH (07:07)
[2025-03-06] MEDS: DOCUSATE SODIUM 100 MG CAP PO SCH (08:08)
[2025-03-06] MEDS: IBUPROFEN 600 MG TAB PO PRN (08:08)
[2025-03-06] MEDS: PRENATAL VITAMIN 1 TAB PO SCH (08:08)
--- NOTE | 2025-03-06 08:08 | Anesthesia Procedure Note ---
Date of Service March 06, 2025 Anesthesia Post Epidural Note Vital Signs Vital Signs: Temp Pulse Resp BP Pulse Ox O2 Del Method 97.5 F L 82 18 134/87 98 Room Air 03/06/25 02:03/06/25 02:03/06/25 02:10 03/06/25 02:03/05/25 22:46 03/06/25 02:10 Pain Intensity Bilateral Abdomen: Pain Intensity: 0 Notes Mental Status: alert / awake / arousable and participated in evaluation Nausea / Vomiting: adequately controlled Pain: adequately controlled Airway Patency, RR, SpO2: stable & adequate BP & HR: stable & adequate Hydration State: stable & adequate Neuraxial Anesthesia: was administered and sensory block is resolving Anesthetic Complications: no major complications apparent and Pt Satisfied with anesthetic care Epidural: Removed without complications and With tip intact
[2025-03-06 14:49] VITALS: TEMP 98.1
[2025-03-06] MEDS: DIPHTHER/TETAN/PERTUS Vaccine (Tdap, Adol/Adult) 0.5mL IM ONE (17:51)
[2025-03-06 20:55] VITALS: BP 124/87; PULSE 92; O2SAT 97
== END 2025-03-06 23:45 | disposition home or self-care (01) | DRG 807 ==
LOC: OPB 17:46 → 4S1 17:48 → 4E2 03-06 02:15